=== PATIENT | female | born 1955 | race Caucasian/White ===

== ENCOUNTER 2017-03-16 19:46 | Observation (INO) | payer SELFPAY ==
[~2017-03-16] VITALS: Ht 170.2 cm; Wt 80.5 kg
[2017-03-16] VITALS (10 sets, daily range): BP systolic 125–201; BP diastolic 60–110; PULSE 76–105; RESP 18–20; TEMP 98.3; O2SAT 94–97
[~2017-03-16 19:46] MED LIST: CARD120T4 PO; COUM7.5T PO; FAMO20 PO; FENT50DI T-DERMAL; NAPR220C2 PO; XANA1TAB6 PO
[2017-03-16] MEDS ORDERED: LORazepam 2 MG/ML VIAL IV PUSH ONE (20:00)
[2017-03-16] MEDS ORDERED: NITROGLYCERIN 0.4 MG SL 25 TABS/BTL SL ONE (20:00)
[2017-03-16] MEDS ORDERED: SODIUM CHLORIDE 0.9% FLUSH 10 ML FLUSH IVF PRN ×2 (20:00→21:45)
[2017-03-16] MEDS ORDERED: ASPIRIN 81 MG CHEW TAB CHEW ONE (20:00)
[2017-03-16 20:06] LABS: AUTOMATED NEUTROPHIL # 4.5 TH/MM3 (1.8-7.7); BASOPHIL # 0.1 TH/MM3 (0-0.2); BASOPHIL % 1.1 % (0.0-2.0); EOSINOPHIL % 0.3 % (0.0-4.0); HEMATOCRIT 40.8 % (35.0-46.0); HEMO FLAGS DIFF FINAL; LYMPH % 43.5 % (9.0-44.0); LYMPHOCYTE # 3.9 TH/MM3 (1.0-4.8); MEAN CELL VOLUME 91.9 FL (80.0-100.0); MEAN CORPUSCULAR HEMOGLOBIN 31.1 PG (27.0-34.0); MEAN CORPUSCULAR HGB CONC 33.9 % (32.0-36.0); MONO % 5.2 % (0.0-8.0); NEUT % 49.9 % (16.0-70.0); PLATELET COUNT 371 TH/MM3 (150-450); RED BLOOD COUNT 4.45 MIL/MM3 (4.00-5.30); RED CELL DISTRIBUTION WIDTH 12.5 % (11.6-17.2)
[2017-03-16] MEDS: SODIUM CHLOR 0.9% 1000 ML INJ 1,000 ML IV SCH (20:08)
[2017-03-16] MEDS ORDERED: ONDANSETRON HCL 4 MG/2 ML VIAL IV PUSH ONE (20:15)
--- NOTE | 2017-03-16 20:15 | PD ---
HPI Chief Complaint: Chest Pain Time Seen by Provider: 19:49 Travel History International Travel<30 days: No Contact w/Intl Traveler<30days: No Traveled to known affect area: No History of Present Illness HPI 61-year-old female presents to the emergency department by private transportation in the care of her family for evaluation of retrosternal chest pain with radiation to the neck and the left upper extremity was some numbness sensation to the left upper extremity without weakness. Patient has also experienced shortness of breath and nausea. Patient states that symptoms actually began last evening but have worsened throughout the day. Patient states pain earlier was quite severe and made her feel almost near syncopal but took sublingual nitroglycerin 3 with decrease of discomfort which is a burning sensation to 5/10 in intensity. Patient states she's been out of her medications for approximately one week if she is currently in the process of changing jobs and therefore obtaining new insurance. Patient has history of CAD with previous cardiac catheterization one year ago by Dr. Jackson which showed 50% stenosis of single vessel with mild to moderate disease. Patient also has history of paroxysmal atrial fibrillation and discontinued Coumadin use on her own some time ago. Patient also has history of hypertension dyslipidemia COPD severe anxiety for which she takes Xanax 1 mg twice daily and has been out of this medication as well. Patient's had previous pneumonia. Previous surgery with Joya rods in the back and takes fentanyl patch every 3 days for chronic pain syndrome. Patient denies tobacco use 5 years. 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 Patient denies history of diabetes. Patient does report family history of early onset heart disease. Patient has had one 81 mg low-dose aspirin today but none this evening. Patient does not report any headache visual disturbance change in mentation change in speech facial droop upper or lower extremity weakness and no ataxia of gait. Patient states that numbness that she felt in her affect upper extremity is resolving. PFSH Past Medical History Narrative Medical Anxiety arthritis chronic pain syndrome back surgery/Joya rods CAD hypertension dyslipidemia atrial fibrillation migraines cardiac catheterization ; no tobacco use 5 years; family history CAD; nursing notes reviewed Arthritis: Yes Asthma: No Autoimmune Disease: No Blood Disorders: No Anxiety: Yes Depression: Yes Heart Rhythm Problems: No Cancer: No Cardiac Catheterization: Yes (2002) Cardiovascular Problems: Yes (HTN) High Cholesterol: No Chemotherapy: No Chest Pain: No Congestive Heart Failure: No COPD: No Cerebrovascular Accident: No Coronary Artery Disease: Yes Diabetes: No Diminished Hearing: No Endocrine: No GERD: Yes Glaucoma: No Genitourinary: Yes (HESITANCY) Headaches: Yes Hepatitis: No Hiatal Hernia: Yes Hypertension: Yes Immune Disorder: No Implanted Vascular Access Dvce: Yes Kidney Stones: No Musculoskeletal: Yes Neurologic: Yes (ANXIETY) Psychiatric: Yes Reproductive: Yes (3 MISCARRIAGES) Respiratory: Yes (COPD) Integumentary: No Immunizations Current: No Migraines: Yes Radiation Therapy: No Renal Failure: No Seizures: No Sickle Cell Disease: No Sleep Apnea: No Thyroid Disease: No Ulcer: Yes Menopausal: Yes : 3 Para: 1 Miscarriage: 2 Past Surgical History Abdominal Surgery: No AICD: No Appendectomy: No Arteriovenous Shunt: No Body Medical Devices: JOYA RODS, Cardiac Surgery: Yes (HEART CATH 2002, 2005, 2013) Cholecystectomy: No Ear Surgery: No Endocrine Surgery: No Eye Surgery: No Genitourinary Surgery: No Gynecologic Surgery: No Insulin Pump: No Joint Replacement: No Neurologic Surgery: No Oral Surgery: Yes (TEETH EXTRAXCTIONS) Pacemaker: No Thoracic Surgery: No Other Surgery: Yes (BACK) Social History Alcohol Use: Yes (OCCASIONAL) Tobacco Use: No Substance Use: No Allergies-Medications (Allergen,Severity, Reaction): Coded Allergies: No Known Allergies (Unverified , 03/16/17) Reported Meds & Prescriptions Reported Meds & Active Scripts Active Reported Naproxen Sodium 220 Mg Tab 220 Mg PO DAILY PRN Aspirin 81 Mg Chew 81 Mg CHEW DAILY Narrative Medication Denies Coumadin/warfarin use Review of Systems Except as stated in HPI: all other systems reviewed are Neg General / Constitutional: No: Fever, Chills HENT: Positive: Neck Pain (referred), No: Congestion Cardiovascular: Positive: Chest Pain or Discomfort, Diaphoresis, No: Palpitations, Irregular Rhythm, Tachycardia, Syncope, Dyspnea on exertion, Edema , Claudication Respiratory: Positive: Shortness of Breath, No: Cough, Wheezing Gastrointestinal: Positive: Nausea, No: Vomiting, Diarrhea, Abdominal Pain Genitourinary: No: Dysuria Musculoskeletal: No: Myalgias, Arthralgias, Weakness, Cramping, Edema, Pain Skin: No Rash Neurologic: Positive: Weakness, Paresthesia (brief left upper extremity secondary to chest pain), No: Dizziness, Syncope, Focal Abnormalities, Coordination Problem, Ataxia, Headache, Change in Mentation, Slurred Speech Psychiatric: Positive: Anxiety (daily antianxiety or use out of medication 5 days) Hematologic/Lymphatic: No: Easy Bruising Physical Exam Narrative GENERAL: Well-developed well-nourished female in obvious distress appears very anxious and reports high anxiety and no respiratory distress; GCS 15 SKIN: Warm and dry. HEAD: Atraumatic. Normocephalic. EYES: Pupils equal and round. No scleral icterus. No injection or drainage. ENT: No nasal bleeding or discharge. Mucous membranes pink and moist. NECK: Trachea midline. No JVD. CARDIOVASCULAR: Regular rate and rhythm. RESPIRATORY: No accessory muscle use. Clear to auscultation. Breath sounds equal bilaterally. GASTROINTESTINAL: Abdomen soft, non-tender, nondistended. Hepatic and splenic margins not palpable. MUSCULOSKELETAL: Extremities without clubbing, cyanosis, or edema. No obvious deformities. NEUROLOGICAL: Awake and alert. No obvious cranial nerve deficits. Motor grossly within normal limits. Five out of 5 muscle strength in the arms and legs. Sensation intact bilateral upper extremities and lower extremities. DTRs 2+ and equal bilateral upper extremity's and lower extremities. No pronator drift. No limb ataxia. Normal speech. PSYCHIATRIC: Anxious mood and affect; insight and judgment normal. Data Data Last Documented VS Vital Signs Date Time Temp Pulse Resp B/P Pulse Ox O2 Delivery O2 Flow Rate FiO2 03/16/17 21:30 80 18 138/60 97 Room Air 03/16/17 19:48 98.3 Orders Electrocardiogram (03/16/17 19:50) Basic Metabolic Panel (Bmp) (03/16/17 19:50) Ckmb (Isoenzyme) Profile (03/16/17 19:50) Complete Blood Count With Diff (03/16/17 19:50) Magnesium (Mg) (03/16/17 19:50) Prothrombin Time / Inr (Pt) (03/16/17 19:50) Act Partial Throm Time (Ptt) (03/16/17 19:50) Troponin I (03/16/17 19:50) Chest, Single Ap (03/16/17 19:50) Ecg Monitoring (03/16/17 19:50) Bilateral Bp Monitoring (03/16/17 19:50) Iv Access Insert/Monitor (03/16/17 19:50) Oximetry (03/16/17 19:50) Oxygen Administration (03/16/17 19:50) Sodium Chloride 0.9% Flush (Ns Flush) (03/16/17 20:00) Aspirin Chew (Aspirin Chew) (03/16/17 20:00) Nitroglycerin Sl (Nitrostat Sl) (03/16/17 20:00) Lorazepam Inj (Ativan Inj) (03/16/17 20:00) Sodium Chlor 0.9% 1000 Ml Inj (Ns 1000 M (03/16/17 20:00) Ondansetron Inj (Zofran Inj) (03/16/17 20:15) Pantoprazole Inj (Protonix Inj) (03/16/17 20:30) Ceftriaxone Inj (Rocephin Inj) (03/16/17 21:15) Azithromycin Inj (Zithromax Inj) (03/16/17 21:15) Blood Culture (03/16/17 21:09) Lactic Acid (03/16/17 21:09) Nitroglycerin 2% Oint (Nitroglycerin 2% (03/16/17 21:15) Sodium Chlorid 0.9% 500 Ml Inj (Ns 500 M (03/16/17 21:15) Place In Observation (03/16/17 ) Vital Signs (Adult) Q4H (03/16/17 21:35) Activity Oob With Assistance (03/16/17 21:35) Pan Devulcanizer Helper / Telemetry .CONTINUOUS (03/16/17 21:35) Diet Heart Healthy (03/17/17 Breakfast) Sodium Chloride 0.9% Flush (Ns Flush) (03/16/17 21:45) Basic Metabolic Panel (Bmp) (03/17/17 06:00) Complete Blood Count With Diff (03/17/17 06:00) Creatine Kinase (Cpk) (03/17/17 02:00) Creatine Kinase (Cpk) (03/17/17 08:00) Troponin I (03/17/17 02:00) Troponin I (03/17/17 08:00) Electrocardiogram (03/17/17 02:00) Electrocardiogram (03/17/17 08:00) Naloxone Inj (Narcan Inj) (03/16/17 21:45) Ceftriaxone Inj (Rocephin Inj) (03/17/17 09:00) Azithromycin Inj (Zithromax Inj) (03/17/17 09:00) Admit Order (Ed Use Only) (03/16/17 ) ^ Saline Lock (03/16/17 21:38) Resp Oxygen Harish C Titrat 1-4 L (03/16/17 ) Notify Dr: Other (03/16/17 21:38) Sodium Chloride 0.9% Flush (Ns Flush) (03/16/17 21:45) Consult Cardiology (03/16/17 21:38) Labs Laboratory Tests Test 03/16/17 03/16/17 19:55 21:30 White Blood Count 9.0 TH/MM3 Red Blood Count 4.45 MIL/MM3 Hemoglobin 13.8 GM/DL Hematocrit 40.8 % Mean Corpuscular Volume 91.9 FL Mean Corpuscular Hemoglobin 31.1 PG Mean Corpuscular Hemoglobin 33.9 % Concent Red Cell Distribution Width 12.5 % Platelet Count 371 TH/MM3 Mean Platelet Volume 6.9 FL Neutrophils (%) (Auto) 49.9 % Lymphocytes (%) (Auto) 43.5 % Monocytes (%) (Auto) 5.2 % Eosinophils (%) (Auto) 0.3 % Basophils (%) (Auto) 1.1 % Neutrophils # (Auto) 4.5 TH/MM3 Lymphocytes # (Auto) 3.9 TH/MM3 Monocytes # (Auto) 0.5 TH/MM3 Eosinophils # (Auto) 0.0 TH/MM3 Basophils # (Auto) 0.1 TH/MM3 CBC Comment DIFF FINAL Differential Comment Prothrombin Time 10.8 SEC Prothromb Time International 1.0 RATIO Ratio Activated Partial 27.4 SEC Thromboplast Time Sodium Level 138 MEQ/L Potassium Level 3.5 MEQ/L Chloride Level 105 MEQ/L Carbon Dioxide Level 24.7 MEQ/L Anion Gap 8 MEQ/L Blood Urea Nitrogen 7 MG/DL Creatinine 0.60 MG/DL Estimat Glomerular Filtration 102 ML/MIN Rate Random Glucose 96 MG/DL Calcium Level 9.1 MG/DL Magnesium Level 1.8 MG/DL Total Creatine Kinase 94 U/L Troponin I LESS THAN 0.02 NG/ML Lactic Acid Level 1.5 mmol/L MDM Medical Decision Making Medical Screen Exam Complete: Yes Emergency Medical Condition: Yes Medical Record Reviewed: Yes Interpretation(s) EKG: Normal sinus rhythm no acute ST elevation or injury pattern change nonspecific minor T wave inversions septally V1 V2 Differential Diagnosis Chest pain, ACS, myocardial infarction, aortic dissection, PE, COPD, esophageal spasm, TIA Narrative Course Patient placed on housing assistant EKG performed IV access obtained; bilateral blood pressures obtained. Patient with marked anxiety with tremulousness states that she has not had her Xanax and feels extremely anxious patient ordered aspirin 162 mg times one dose, patient has artery taken 3 sublingual nitroglycerin at home noted to be hypertensive with chest pain 5/10 in intensity administered one sublingual nitroglycerin. Patient also administered Ativan 0.5 mg for complaint of anxiety for benzodiazepine management which she typically takes on a daily basis. Patient also given Zofran 4 mg IV for complaint of nausea. Patient administered normal saline 100 cc per hour as maintenance fluids. Specimens collected and sent for resulting. Medical record reviewed identifies patient did undergo a cardiac catheterization 02/2016 with multiple moderate disease with 50% single vessel disease. @ 8:18 after x 1 sl ntg 0.4mg cp decreased to 3/10 burning @ 9:13 pain free; cbc wnl; bmp: wnl; coags: wnl ---ekg no acute injury pattern and cxr er reading radiologist concerning for lingular infiltrate--case discussed with patients tobacco drier operator -- card cath from 02/2016 single vessel moderate disease with patient report of d/c coumadin on her own. Patient resting comfortably and aware of plan for observation admission to [facility] to [facility] and recommendation of her tobacco drier operator Dr. Jackson with coverage by his colleague Dr. Ocampo admit to medicine service Dr. Vitale; in view of lingular infiltrate but cultures times to obtain lactic acid level obtained patient given normal saline bolus and presumptive community-acquired antibiotic coverage with Rocephin 1 g IV piggyback and azithromycin 500 mg IV piggyback. Physician Communication Physician Communication discussed with Dr Jackson --rec [facility] admit to medicine --serial enzymes , if unstable overnight --corporate receptionist for Dr Jackson is Dr Wiggins; will manage for lingular infiltrate as well; discussed with Dr Vitale --- OBS to [facility] Diagnosis Primary Impression: Chest pain Qualified Code: R07.2 - Precordial pain Additional Impression: Pulmonary infiltrate in left lung on chest x-ray Admitting Information Admitting Physician Requests: Observation Scripts Levofloxacin 750 Mg [id number] Mg PO DAILY #6 TAB Ref 0 Prov:Te Royal 03/17/17 Guaifenesin-Codeine Liq (Guaifenesin AC Liq)100-10 Mg/5 Ml Syrp10 Ml PO Q6H PRN (COUGH) 10 Days Ref 0 Prov:Te Royal 03/17/17 Diltiazem CD 24 HR (Cardizem CD 24 HR)180 Mg [id number] Mg PO DAILY #30 CAP Prov:Te Royal 03/17/17 Atorvastatin (Lipitor)10 Mg Tab10 Mg PO HS #30 TAB Prov:eT Royal 03/17/17 Omeprazole 40 Mg Cap40 Mg PO DAILY #30 CAP Ref 0 Prov:Te Royal 03/17/17 Alprazolam (Xanax)1 Mg Tab1 Mg PO BID PRN (ANXIETY) #20 TAB Ref 0 Prov:Te Royal 03/17/17 Nena Ron MD Mar 16, 2017 20:15
[2017-03-16 20:16] LABS: CHLORIDE 105 MEQ/L (98-107); POTASSIUM 3.5 MEQ/L (3.5-5.1); SODIUM (NA) 138 MEQ/L (136-145)
[2017-03-16 20:19] LABS: ANION GAP 8 MEQ/L (5-15); BICARBONATE 24.7 MEQ/L (21.0-32.0); MAGNESIUM 1.8 MG/DL (1.5-2.5)
[2017-03-16 20:20] LABS: BLOOD UREA NITROGEN 7 MG/DL (7-18)
[2017-03-16 20:22] LABS: APTT (PATIENT) 27.4 SEC (24.3-30.1); PROTHROMBIN TIME - PATIENT 10.8 SEC (9.8-11.6)
[2017-03-16 20:23] LABS: GLOMERULAR FILTRATION RATE 102 ML/MIN (>89)
[2017-03-16 20:30] LABS: CREATINE KINASE 94 U/L (26-192)
[2017-03-16] MEDS ORDERED: PANTOPRAZOLE SODIUM 40 MG VIAL IV PUSH ONE (20:30)
--- NOTE | 2017-03-16 20:59 | RADRPT ---
EXAM DATE/TIME: 03/16/2017 20:08 [place] COMPARISON: CHEST SINGLE AP, November 18, 2015, 3:34. INDICATIONS : Chest pain. MEDICAL HISTORY : Chronic obstructive pulmonary disease. SURGICAL HISTORY : Devine rods. ENCOUNTER: Initial ACUITY: 1 day PAIN SCORE: 7/10 LOCATION: Bilateral chest FINDINGS: Elongated area of consolidation tracks along the left lower heart border characteristic of a lingular infiltrate. The right lung is clear. The heart is normal in size. Both hemidiaphragms well deline ated. CONCLUSION: Probable elongated consolidative infiltrate in the lingula. Lobito Kim MD on March 16, 2017 at 20:57 Board Certified Radiologist. This report was verified electronically.
[2017-03-16] MEDS ORDERED: SODIUM CHLORID 0.9% 500 ML INJ 500 ML IV ONE (21:15)
[2017-03-16] MEDS ORDERED: NITROGLYCERIN 2% OINT 1 GM PACKET TOPICAL ONE (21:15)
[2017-03-16] MEDS ORDERED: AZITHROMYCIN INJ 500 MG in SODIUM CHLOR 0.9% 250 ML INJ 250 ML IV ONE (21:15)
[2017-03-16] MEDS ORDERED: cefTRIAXone INJ 1,000 MG in SODIUM CHLORIDE 0.9% INJ 100 ML IV ONE (21:15)
[2017-03-16] MEDS ORDERED: SODIUM CHLORIDE 0.9% FLUSH 10 ML FLUSH IV FLUSH PRN (21:45)
[2017-03-16] MEDS ORDERED: NALOXONE HCL 0.4 MG/ML AMP IV PRN (21:45)
[2017-03-16] MEDS ORDERED: CARD120T4 PO (21:49)
[2017-03-16] MEDS ORDERED: DILT120T PO (21:49)
[2017-03-16] MEDS ORDERED: OMEP40CA2 PO (21:50)
[2017-03-16] MEDS ORDERED: XANA1TAB2 PO (21:50)
[2017-03-16] MEDS ORDERED: FENT25DI T-DERMAL (21:51)
[2017-03-16] MEDS ORDERED: ASPI81CH CHEW (21:51)
[2017-03-16] MEDS ORDERED: MEDI220T PO (21:52)
[2017-03-17] VITALS (7 sets, daily range): BP systolic 105–133; BP diastolic 52–84; PULSE 65–81; RESP 16–18; TEMP 97.8–98.7; O2SAT 92–96
[2017-03-17 02:57] LABS: CREATINE KINASE 70 U/L (26-192)
[2017-03-17] MEDS: SODIUM CHLOR 0.9% 1000 ML INJ 1,000 ML IV SCH ×2 (06:00→11:38)
[2017-03-17] MEDS ORDERED: ONDANSETRON HCL 4 MG/2 ML VIAL IV PUSH PRN (06:45)
[2017-03-17] MEDS ORDERED: ACETAMINOPHEN 325 MG TAB PO PRN (06:45)
[2017-03-17] MEDS ORDERED: cefTRIAXone INJ 1,000 MG in SODIUM CHLORIDE 0.9% INJ 100 ML IV SCH (09:00)
[2017-03-17] MEDS ORDERED: AZITHROMYCIN INJ 500 MG in SODIUM CHLOR 0.9% 250 ML INJ 250 ML IV SCH (09:00)
[2017-03-17] MEDS ORDERED: SODIUM CHLORIDE 0.9% FLUSH 10 ML FLUSH IV FLUSH SCH ×2 (09:00)
[2017-03-17] MEDS ORDERED: ATORVASTATIN 10 MG TAB PO ONE (11:00)
[2017-03-17] MEDS ORDERED: ALPRAZolam 1 MG TAB PO PRN (11:00)
[2017-03-17] MEDS ORDERED: DILTIAZEM-CD 180 MG CAP ER PO ONE (11:00)
[2017-03-17] MEDS ORDERED: ASPIRIN EC 81 MG TABEC PO ONE (11:00)
[2017-03-17 11:21] LABS: AUTOMATED NEUTROPHIL # 2.5 TH/MM3 (1.8-7.7); BASOPHIL % 0.4 % (0.0-2.0); EOSINOPHIL % 0.6 % (0.0-4.0); HEMO FLAGS DIFF FINAL; LYMPH % 52.5 % (9.0-44.0); LYMPHOCYTE # 3.2 TH/MM3 (1.0-4.8); MEAN CELL VOLUME 92.3 FL (80.0-100.0); MEAN CORPUSCULAR HEMOGLOBIN 32.1 PG (27.0-34.0); MEAN CORPUSCULAR HGB CONC 34.8 % (32.0-36.0); MONO % 6.1 % (0.0-8.0); NEUT % 40.4 % (16.0-70.0); PLATELET COUNT 310 TH/MM3 (150-450); RED BLOOD COUNT 4.11 MIL/MM3 (4.00-5.30); RED CELL DISTRIBUTION WIDTH 13.2 % (11.6-17.2); WHITE BLOOD COUNT 6.2 TH/MM3 (4.0-11.0)
--- NOTE | 2017-03-17 11:24 | MB ---
cc: JUAN JOSE WYLIE M.D. DATE OF CONSULTATION 03/17/2017 HISTORY OF PRESENT ILLNESS Paola is a very pleasant 61-year-old lady with a history of mild to moderate coronary disease by cath on February 20, 2016, also history of paroxysmal atrial fibrillation previously on Coumadin. The patient, however, refuses Coumadin. She developed severe band-like, sharp chest pain, worse with a deep breath system associated with numbness down the left upper extremity, also malaise and fatigue, found to have a left lingular infiltrate on chest x-ray. She feels better this morning, otherwise denies any GI or bleeding, PND, orthopnea, syncope or dizziness. PAST MEDICAL HISTORY Per History of Present Illness. 1. She has a history of chronic back pain syndrome status post Devine rods. 2. Coronary artery disease as detailed above. 3. Hypertension. 4. Dyslipidemia. 5. A-fib. 6. Migraine headaches. 7. Arthritis. 8. COPD. SOCIAL HISTORY Denies tobacco use. Drinks alcohol. ONSET Denies diabetes. Drinks alcohol occasionally. ALLERGIES None. MEDICATIONS PRIOR TO ADMISSION 1. Xanax. 2. Coumadin 7.5 daiyl. 3. Pepcid. 4. Cardizem 120 b.i.d. 5. Naprosyn. 6. Fentanyl patch. MEDICATIONS IN THE HOSPITAL 1. Ceftriaxone. 2. Azithromycin IV. 3. Aspirin 162 x 1. PHYSICAL EXAMINATION VITAL SIGNS: Blood pressure 119/52, pulse 67, respiratory rate 18, temperature 97.8, sats 95% on room air. GENERAL: She is alert and oriented x 3, in no acute distress. NECK: Supple. No JVD, no bruit. CARDIOVASCULAR: S1, S2. No murmurs, rubs, or gallops. LUNGS: Clear to auscultation bilaterally. ABDOMEN: Soft, nontender, nondistended with positive bowel sounds. EXTREMITIES: No extremity edema. LABORATORY DATA INR is 1.0. White count 9.0, hemoglobin 13.8, hematocrit 40.8, platelet count is 371. Sodium 138, potassium 3.5, chloride 105, bicarb 24.7, BUN 7, c438 0.60. Troponin I less than 0.02 x 2. CHEST X-RAY Probable elongated consolidative infiltrate in the lingula and EKG shows normal sinus rhythm with nonspecific ST-T wave changes. DIAGNOSES 1. Pneumonia. 2. Atypical chest pain. 3. Coronary artery disease. 4. Paroxysmal atrial fibrillation. 5. Noncompliance. 6. Hypertension. 7. Chronic back pain. DISCUSSION At this point in time she has no objective evidence of ischemic etiology to her symptoms. Her chest pain is consistent with pleuritic chest pain and she has a pneumonia. I doubt this is ischemic in etiology. Nevertheless, she does have risk factors for ischemic events. Recommend aspirin 81 mg a day as the patient refuses Coumadin. Optimally she should be on statin as I recall. We will start a low-dose statin. I think she may have a statin intolerance. I will be out of town until [address] Juan Pablo will be covering me in my absence. ADDENDUM Also note, the patient has a history of paroxysmal A. Fib and her CHADS sore is one. She is noncompliant with Coumadin and refuses to take Coumadin, therefore, we will place her aspirin 81 mg daily, enteric-coated. She is currently in sinus rhythm and also recommend continuing her Cardizem at her home dose. MD BROCK Guillen/[place] /10:44 AM /11:55 AM
[2017-03-17 11:49] LABS: BICARBONATE 27.3 MEQ/L (21.0-32.0); POTASSIUM 3.4 MEQ/L (3.5-5.1)
[2017-03-17 11:56] LABS: CREATINE KINASE 80 U/L (26-192)
[2017-03-17] MEDS ORDERED: OMEP40CA2 PO (13:44)
[2017-03-17] MEDS ORDERED: LIPI10TA PO (13:44)
[2017-03-17] MEDS ORDERED: CARD180C5 PO (13:44)
[2017-03-17] MEDS ORDERED: XANA1TAB2 PO (13:44)
[2017-03-17] MEDS ORDERED: GUAISYP4 PO (13:46)
--- NOTE | 2017-03-17 13:46 | HHI.HP ---
[facility] Primary [facility] Physician No Primary Care Physician Admission Diagnosis chest pain; lingular infiltrate Diagnoses: Chief Complaint: Chest pain Travel History International Travel<30 Days: No Contact w/Intl Traveler <30 Da: No Traveled to Known Affected Are: No History of Present Illness Written by Martin Sarmiento, acting as scribe for Dr. Royal on 03/17/17 at 13:32. This note was transcribed by ANNETTA Lott. I, Dr. Rodolfo Royal personally performed the history, physical exam, and medical decision making; and confirmed the accuracy of the information in the transcribed note. Authenticated by Dr. Rodolfo Royal on 03/17/17 at 23:29. 61-year-old female with a past medical history of CAD, COPD, HTN, GERD, anxiety , chronic back pain, A. fib who presented for chest pain. 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 She's also been out of some of her home meds recently while she's been trying to follow up with her PCP. She has noticed that she's had a cough that is productive with green sputum. She states that yesterday prior to admission she began having burning "pleuritic" chest pain with associated left arm numbness and elevated blood pressure. She was seen by her professor of public administration Dr. Jackson here earlier today who has cleared her for outpatient follow-up. She is currently having no shortness of breath on room air. She says she has a history of getting pneumonia couple times a year and her symptoms feel similar to previous episodes. Review of Systems Except as stated in HPI: all other systems reviewed are Neg Past Family Social History Past Medical History Hypertension Coronary artery disease COPD GERD Anxiety Chronic back pain Atrial fibrillation Past Surgical History Back surgery with hardware placement Reported Medications Naproxen Sodium 220 Mg Tab 220 Mg PO DAILY PRN Aspirin 81 Mg Chew 81 Mg CHEW DAILY Fentanyl Patch 72 HR (Fentanyl) 25 Mcg/Hr Patch 25 Mcg T-DERMAL Q72H Omeprazole 40 Mg Cap 40 Mg PO DAILY Xanax (Alprazolam) 1 Mg Tab 1 Mg PO BID PRN Cardizem (Diltiazem HCl) 120 Mg Tab 180 Mg PO BID Allergies: Coded Allergies: No Known Allergies (Unverified , 03/16/17) Active Ordered Medications Current Medications Medications (Trade) Dose Ordered Sig/Stella Route Start Time Stop Time Status Last Admin (NS 1000 ml Inj) 1,000 ml @ 100 mls/hr Q10H IV 03/16/17 20:00 03/17/17 11:38 (NS Flush) 2 ml UNSCH PRN IV FLUSH 03/16/17 21:45 Naloxone HCl 0.4 mg 0.4 mg UNSCH PRN IV 03/16/17 21:45 Ceftriaxone Sodium 1000 mg/ Sodium Chloride 100 ml @ 200 mls/hr Q24H IV 03/17/17 09:00 03/17/17 08:46 (Zithromax Inj/ NS 250 ml Inj) 250 ml @ 250 mls/hr Q24H IV 03/17/17 09:00 03/17/17 10:17 (NS Flush) 2 ml UNSCH PRN IVF 03/16/17 21:45 (Zofran Inj) 4 mg Q6HR PRN IV PUSH 03/17/17 06:45 03/17/17 06:38 (Tylenol) 650 mg Q4H PRN PO 03/17/17 06:45 03/17/17 06:39 (Xanax) 1 mg BID PRN PO 03/17/17 11:00 03/17/17 11:05 (Protonix) 40 mg DAILY PO 03/18/17 09:00 (Ecotrin Ec) 81 mg DAILY PO 03/18/17 09:00 (Lipitor) 10 mg HS PO 03/18/17 21:00 (Cardizem Cd) 180 mg DAILY PO 03/18/17 09:00 (KCl) 20 meq ONCE ONCE PO 03/17/17 14:00 03/17/17 14:01 Family History Mother had diabetes and heart disease Father of colon cancer with lung metastases Social History Quit smoking 5 years ago occasional alcohol use Works as a nurse Physical Exam Vital Signs Vital Signs Date Time Temp Pulse Resp B/P Pulse Ox O2 Delivery O2 Flow Rate FiO2 03/17/17 11:30 98.0 76 16 130/84 94 03/17/17 08:45 68 03/17/17 07:46 97.8 67 18 119/52 95 03/17/17 03:31 98.1 68 16 105/58 96 03/17/17 01:53 65 03/17/17 01:27 98.7 81 18 133/68 92 03/17/17 00:00 68 18 120/79 94 Room Air 03/16/17 23:00 76 18 125/70 94 Room Air 03/16/17 22:05 95 21 03/16/17 22:00 98.3 80 18 133/64 96 Room Air 03/16/17 21:30 80 18 138/60 97 Room Air 03/16/17 20:50 78 18 127/70 95 Room Air 03/16/17 20:20 90 18 150/77 95 Room Air 03/16/17 20:14 95 18 138/83 95 Room Air 03/16/17 20:08 86 18 161/93 96 Room Air 03/16/17 20:05 20 Room Air 03/16/17 20:00 97 Room Air 03/16/17 20:00 88 20 158/86 97 Room Air 167/91 03/16/17 20:00 97 Room Air 03/16/17 19:48 98.3 105 20 201/110 95 Physical Exam GENERAL: Well-developed well-nourished. In no acute distress. SKIN: Warm and dry. No lesions noted. HEENT: Normocephalic. Pupils equal and round. Mucous membranes pink and moist. CARDIOVASCULAR: Regular rate and rhythm. No murmur appreciated. RESPIRATORY: No accessory muscle use. Clear to auscultation. Moderate air entry. No wheezing. GASTROINTESTINAL: Abdomen soft, non-tender, nondistended. Bowel sounds x4. MUSCULOSKELETAL: No obvious deformities. No clubbing or cyanosis. No edema. NEUROLOGICAL: Awake and alert. No focal neurological deficits. Moves upper and lower extremities spontaneously. Normal speech. PSYCHIATRIC: Appropriate mood and affect; insight and judgment normal. Laboratory Laboratory Tests Test 03/16/17 03/16/17 03/17/17 03/17/17 19:55 21:30 02:15 10:52 White Blood Count 9.0 6.2 Red Blood Count 4.45 4.11 Hemoglobin 13.8 13.2 Hematocrit 40.8 38.0 Mean Corpuscular Volume 91.9 92.3 Mean Corpuscular Hemoglobin 31.1 32.1 Mean Corpuscular Hemoglobin 33.9 34.8 Concent Red Cell Distribution Width 12.5 13.2 Platelet Count 371 310 Mean Platelet Volume 6.9 6.8 Neutrophils (%) (Auto) 49.9 40.4 Lymphocytes (%) (Auto) 43.5 52.5 Monocytes (%) (Auto) 5.2 6.1 Eosinophils (%) (Auto) 0.3 0.6 Basophils (%) (Auto) 1.1 0.4 Neutrophils # (Auto) 4.5 2.5 Lymphocytes # (Auto) 3.9 3.2 Monocytes # (Auto) 0.5 0.4 Eosinophils # (Auto) 0.0 0.0 Basophils # (Auto) 0.1 0.0 CBC Comment DIFF FINAL DIFF FINAL Differential Comment Prothrombin Time 10.8 Prothromb Time International 1.0 Ratio Activated Partial 27.4 Thromboplast Time Sodium Level 138 142 Potassium Level 3.5 3.4 Chloride Level 105 109 Carbon Dioxide Level 24.7 27.3 Anion Gap 8 6 Blood Urea Nitrogen 7 6 Creatinine 0.60 0.65 Estimat Glomerular Filtration 102 93 Rate Random Glucose 96 112 Calcium Level 9.1 8.6 Magnesium Level 1.8 Total Creatine Kinase 94 70 80 Troponin I LESS THAN 0.02 LESS THAN 0.02 LESS THAN 0.02 Lactic Acid Level 1.5 Date/Time Procedure Status Source Growth 03/16/17 21:34 Aerobic Blood Culture - Preliminary Resulted Blood Peripheral NO GROWTH IN 1 DAY 03/16/17 21:34 Anaerobic Blood Culture - Preliminary Resulted Blood Peripheral NO GROWTH IN 1 DAY Result Diagram: 03/17/17 1052 03/17/17 1052 Imaging Last Impressions Chest X-Ray 03/16/17 1950 Signed Impressions: Service Date/Time: Thursday, March 16, 2017 20:08 - CONCLUSION: Probable elongated consolidative infiltrate in the lingula. Lobito Kim MD Assessment and Plan Assessment and Plan 61-year-old female with a past medical history of CAD, COPD, HTN, GERD, anxiety , chronic back pain, A. fib who presented for chest pain Atypical chest pain: Sounds more pleuritic. ACS ruled out per protocol with unremarkable serial cardiac enzymes and EKGs. Chest x-ray shows probable elongated consolidative infiltrate in the lingula. Cardiology consulted, DOS ischemia. Continue aspirin, statin. Pneumonia: Chest x-ray as above. Afebrile with no leukocytosis. Satting well on room air. Received IV azithromycin and ceftriaxone in the ED. Continue course of oral Levaquin. Guaifenesin before meals as needed for cough. Continue home nebs as needed. Other chronic medical conditions include HTN, anxiety, chronic pain, GERD: Stable at this time and will continue home medications as indicated. Disposition: Clear from cardiology perspective with nonischemic chest pain. We' ll continue to treat for pneumonia as outpatient. Discharge home today. Discharge patient to home Condition on discharge: Improved Heart Diet as tolerated Ad Megan activity Rx written: New Medications: Guaifenesin-Codeine Liq (Guaifenesin AC Liq) 100-10 Mg/5 Ml Syrp 10 ML PO Q6H PRN COUGH Days 10 Ref 0 BOTTLE Levofloxacin 750 Mg Tablet 750 MG PO DAILY Infection #6 Ref 0 TAB Atorvastatin (Lipitor) 10 Mg Tab 10 MG PO HS Cholesterol Management #30 TAB Diltiazem CD 24 HR (Cardizem CD 24 HR) 180 Mg Caper 180 MG PO DAILY Heart #30 CAP Continued Medications: Alprazolam (Xanax) 1 Mg Tab 1 MG PO BID PRN ANXIETY #20 Ref 0 TAB (This prescription has been renewed) Aspirin 81 Mg Chew 81 MG CHEW DAILY Ref 0 TAB Naproxen Sodium 220 Mg Tab 220 MG PO DAILY PRN Pain Management Ref 0 TAB Omeprazole 40 Mg Cap 40 MG PO DAILY Reflux #30 Ref 0 CAP (This prescription has been renewed) Follow-up with primary care physician within one week. Cardiology PRN Discussed Condition With Patient, Martin Clemente Mar 17, 2017 13:46 Te Royal DO Mar 17, 2017 23:30
[2017-03-17] MEDS ORDERED: LEVO750T3 PO (13:47)
[2017-03-17] MEDS ORDERED: POTASSIUM CHLORIDE 20 MEQ CONTROLLED RELEASE TAB PO ONE (14:00)
--- NOTE | 2017-03-17 14:53 | EKG ---
Date Performed: 03/17/2017 Time Performed: 02:28:28 PTAGE: 61 years EKG: Sinus rhythm NORMAL ECG PREVIOUS TRACING : 03/16/2017 19.53 Since previous tracing, no significant change noted DOCTOR: Josefa Painting Interpretating Date/Time 03/17/2017 14:52:33
--- NOTE | 2017-03-17 14:53 | EKG ---
Date Performed: 03/16/2017 Time Performed: 19:53:55 PTAGE: 61 years EKG: Sinus rhythm NORMAL ECG PREVIOUS TRACING : 02/20/2016 08.48 Since previous tracing, no significant change noted DOCTOR: Josefa Painting Interpretating Date/Time 03/17/2017 14:52:14
[2017-03-17] MEDS ORDERED: DILTIAZEM-CD 180 MG CAP ER PO SCH (21:00)
[2017-03-18] MEDS ORDERED: ASPIRIN 81 MG CHEW TAB CHEW SCH (09:00)
[2017-03-18] MEDS ORDERED: ASPIRIN EC 81 MG TABEC PO SCH (09:00)
[2017-03-18] MEDS ORDERED: DILTIAZEM-CD 180 MG CAP ER PO SCH (09:00)
[2017-03-18] MEDS ORDERED: PANTOPRAZOLE SOD 40 MG DELAYED RELEASE TAB PO SCH (09:00)
[2017-03-18] MEDS ORDERED: ATORVASTATIN 10 MG TAB PO SCH (21:00)
== END 2017-03-17 14:20 | disposition home or self-care (01) ==
LOC: PHED 19:46 → PHEDA 21:41 → NEPGCP 03-17 01:10
PROVIDERS: ADMIT Hospitalist; ATTEND Hospitalist
DX: R07.89 Other chest pain (principal); J44.0 Chronic obstructive pulmonary disease with (acute) lower respiratory infection; J18.9 Pneumonia, unspecified organism; R11.0 Nausea; R20.0 Anesthesia of skin; I25.10 Atherosclerotic heart disease of native coronary artery without angina pectoris; I10 Essential (primary) hypertension; I48.0 Paroxysmal atrial fibrillation; E78.5 Hyperlipidemia, unspecified; K21.9 Gastro-esophageal reflux disease without esophagitis; F41.9 Anxiety disorder, unspecified; M54.9 Dorsalgia, unspecified; G89.4 Chronic pain syndrome; G43.909 Migraine, unspecified, not intractable, without status migrainosus; F32.9 Major depressive disorder, single episode, unspecified; M19.90 Unspecified osteoarthritis, unspecified site; Z79.82 Long term (current) use of aspirin; Z79.01 Long term (current) use of anticoagulants; Z79.899 Other long term (current) drug therapy; Z87.891 Personal history of nicotine dependence; Z91.19 Patient's noncompliance with other medical treatment and regimen
CPT/HCPCS: 71010; 80048; 82550; 83605; 83735; 84484; 85025; 85610; 85730; 87040; 93005; 96361; 96365; 96366; 96374; 96375; 99285; C9113; G0378; J0456; J0696; J2060; J2405; J7030; J7040; J7050

== ENCOUNTER 2017-04-27 11:12 | Inpatient (IN) | payer OTHER ==
[2017-04-27] VITALS (8 sets, daily range): BP systolic 101–167; BP diastolic 52–74; PULSE 75–100; RESP 16–24; TEMP 97.7–98.7; O2SAT 92–96
[~2017-04-27] VITALS: Ht 168.9 cm; Wt 86.0 kg
[~2017-04-27 11:12] MED LIST changes: +ASPI81CH CHEW; -CARD120T4 PO; +CARD180C5 PO; -COUM7.5T PO; -FAMO20 PO; -FENT50DI T-DERMAL; +GUAISYP4 PO; +LEVO750T3 PO; +LIPI10TA PO; +MEDI220T PO; -NAPR220C2 PO; +OMEP40CA2 PO; +XANA1TAB2 PO; -XANA1TAB6 PO
[2017-04-27] MEDS ORDERED: HYDROmorphone HCL PF 1 MG/ML VIAL IV PUSH ONE ×2 (12:00→13:15)
--- NOTE | 2017-04-27 13:00 | RADRPT ---
EXAM DATE/TIME: 04/27/2017 12:36 [facility] COMPARISON: No previous studies available for comparison. INDICATIONS : Fell in parking lot, twisted ankle pain and bruising lateral malleous. MEDICAL HISTORY : None. SURGICAL HISTORY : None. ENCOUNTER: Initial ACUITY: 1 day PAIN SCORE: 9/10 LOCATION: Left ankle FINDINGS: Three view exam was performed of the left ankle. The bony structures are in normal alignment. Small bone fragment dorsal to the distal talus, could be capsular avulsion. Faint fracture fragment medial to the navicular bone also possible capsular avulsion. No evidence of dislocation, or soft tissue swelling. The ankle mortise is intact. No radiopaque foreign bodies are seen. Bony mineralization is normal. Ossification of the Achilles insertion posteriorly likely calcific tendinopathy. CONCLUSION: 2 questionable bone fragments adjacent to the talus and navicular bones could be tiny avulsion fractu res. Philipp Fagan MD on April 27, 2017 at 12:57 Board Certified Radiologist. This report was verified electronically.
--- NOTE | 2017-04-27 13:01 | RADRPT ---
EXAM DATE/TIME: 04/27/2017 12:35 [facility] COMPARISON: No previous studies available for comparison. INDICATIONS : Fall pain with deformity right elbow. MEDICAL HISTORY : None. SURGICAL HISTORY : None. ENCOUNTER: Initial ACUITY: 1 day PAIN SCORE: 10/10 LOCATION: Right humerus FINDINGS: Single view of the right humerus demonstrates 2 fracture involving the distal humerus including possi neftaly the capitellum. Bony mineralization is normal. CONCLUSION: Distal humeral fractures. The humeral shaft is intact Philipp Fagan MD on April 27, 2017 at 12:59 Board Certified Radiologist. This report was verified electronically.
--- NOTE | 2017-04-27 13:01 | PD ---
HPI Chief Complaint: Fall Time Seen by Provider: 11:40 Travel History International Travel<30 days: No Contact w/Intl Traveler<30days: No Traveled to known affect area: No History of Present Illness HPI This is a 62-year-old female who presents to the emergency department having had a mechanical fall when she was at [employer] with her kids landing on her right elbow and twisting her left ankle. She reports severe pain in her right elbow, constant, with no associated numbness or weakness. She also has pain in her left ankle. The patient denies hitting her head. She does have a history of chronic back pain and is opiate dependent and uses fentanyl patches at home. PFSH Past Medical History Arthritis: Yes Asthma: No Autoimmune Disease: No Blood Disorders: No Anxiety: Yes Depression: Yes Heart Rhythm Problems: No Cancer: No Cardiac Catheterization: Yes (2002) Cardiovascular Problems: Yes High Cholesterol: No Chemotherapy: No Chest Pain: No Congestive Heart Failure: No COPD: Yes Cerebrovascular Accident: No Coronary Artery Disease: Yes Diabetes: No Diminished Hearing: No Endocrine: No Gastrointestinal Disorders: Yes (ESOPHAGEAL REFLUX AND SPASMS) GERD: Yes Glaucoma: No Genitourinary: Yes (URGENCY) Headaches: Yes Hepatitis: No Hiatal Hernia: Yes Hypertension: Yes Immune Disorder: No Implanted Vascular Access Dvce: Yes Kidney Stones: No Musculoskeletal: Yes Neurologic: No Psychiatric: Yes Reproductive: Yes (3 MISCARRIAGES) Respiratory: Yes Integumentary: No Immunizations Current: No Migraines: Yes Radiation Therapy: No Renal Failure: No Seizures: No Sickle Cell Disease: No Sleep Apnea: No Thyroid Disease: No Ulcer: Yes Influenza Vaccination: Yes ?: Not Menopausal: Yes : 3 Para: 1 Miscarriage: 2 Dilation and Curettage (D&C): Yes (X4) Past Surgical History Abdominal Surgery: No AICD: No Appendectomy: No Arteriovenous Shunt: No Body Medical Devices: JOYA RODS Cardiac Surgery: Yes (HEART CATH 2002, 2005, 2013) Cholecystectomy: No Ear Surgery: No Endocrine Surgery: No Eye Surgery: No Genitourinary Surgery: No Gynecologic Surgery: No Insulin Pump: No Joint Replacement: No Neurologic Surgery: No Oral Surgery: Yes (TEETH EXTRAXCTIONS) Pacemaker: No Thoracic Surgery: No Other Surgery: Yes (NUMEROUS BACK SURGIES) Social History Alcohol Use: Yes ( Occasional wine) Tobacco Use: No (Quit 5 years ago ) Substance Use: No Allergies-Medications (Allergen,Severity, Reaction): Coded Allergies: No Known Allergies (Unverified , 04/27/17) Reported Meds & Prescriptions Reported Meds & Active Scripts Active Cardizem CD 24 HR (Diltiazem CD 24 HR) 180 Mg Caper 180 Mg PO DAILY Lipitor (Atorvastatin Calcium) 10 Mg Tab 10 Mg PO HS Omeprazole 40 Mg Cap 40 Mg PO DAILY Xanax (Alprazolam) 1 Mg Tab 1 Mg PO BID PRN Reported Naproxen Sodium 220 Mg Tab 220 Mg PO DAILY PRN Aspirin 81 Mg Chew 81 Mg CHEW DAILY Review of Systems Except as stated in HPI: all other systems reviewed are Neg Physical Exam Narrative GENERAL:Well appearing, no acute distress SKIN: Focused skin assessment warm and dry. HEAD: Atraumatic. Normocephalic. EYES: Pupils equal and round. No injection or drainage. ENT: Moist mucous membranes NECK: Trachea midline. No cervical spine tenderness. CARDIOVASCULAR: Regular rate and rhythm. No murmur appreciated. 2+ right radial pulse with normal capillary refill. RESPIRATORY: Clear to auscultation. Breath sounds equal bilaterally. GASTROINTESTINAL: Abdomen soft, non-tender, nondistended. MUSCULOSKELETAL: Tender to palpation over the right elbow with swelling, diffusely tender to palpation over the humerus, wrist and right clavicle. No swelling of the left ankle, tender to palpation over the medial malleolus. NEUROLOGICAL: Awake and alert. No obvious cranial nerve deficits. Moving all extremities. PSYCHIATRIC: Appropriate mood and affect; insight and judgment normal. Data Data Last Documented VS Vital Signs Date Time Temp Pulse Resp B/P (MAP) Pulse Ox O2 Delivery O2 Flow Rate FiO2 04/27/17 15:27 75 16 120/57 (78) 96 Room Air 04/27/17 11:22 98.7 Orders Orders Ankle, Complete ([id number]) (04/27/17 ) Chest, Single Ap (04/27/17 ) Hydromorphone Pf Inj (Dilaudid Pf Inj) (04/27/17 12:00) Humerus, One View (04/27/17 ) Forearm (2vws) (04/27/17 ) Hydromorphone Pf Inj (Dilaudid Pf Inj) (04/27/17 13:15) Foot, Complete ([id number]) (04/27/17 ) Ct Elbow W/O Contrast (04/27/17 ) Ct Cerv Spine W/O Contrast (04/27/17 ) Splint Or Brace Apply/Monitor (04/27/17 14:06) Ondansetron Inj (Zofran Inj) (04/27/17 15:15) Hydromorphone Pf Inj (Dilaudid Pf Inj) (04/27/17 16:30) Fiberglass Splint Elbow Adult (04/27/17 ) Sling Cradle Arm (04/27/17 ) Consult Orthopedic (04/27/17 ) Admit Order (Ed Use Only) (04/27/17 17:09) MDM Medical Decision Making Medical Screen Exam Complete: Yes Emergency Medical Condition: Yes Interpretation(s) Last 24 hours Impressions Upper Extremity CT 04/27/17 0000 Signed Impressions: Service Date/Time: Thursday, April 27, 2017 14:43 - CONCLUSION: Severely comminuted fracture of the distal humerus. Aditya Briggs MD FACR Radius/Ulna X-Ray 04/27/17 0000 Signed Impressions: Service Date/Time: Thursday, April 27, 2017 12:29 - CONCLUSION: Comminuted supracondylar fracture elbow involves the lateral articular surface. CT with 3-D recon maybe helpful especially to exclude intra-articular fragments. Aditya Briggs MD FACR Humerus X-Ray 04/27/17 0000 Signed Impressions: Service Date/Time: Thursday, April 27, 2017 12:35 - CONCLUSION: Distal humeral fractures. The humeral shaft is intact Philipp Fagan MD Foot X-Ray 04/27/17 0000 Signed Impressions: Service Date/Time: Thursday, April 27, 2017 13:47 - CONCLUSION: Mild degenerative changes, no fracture.. Aditya Briggs MD FACR Chest X-Ray 04/27/17 0000 Signed Impressions: Service Date/Time: Thursday, April 27, 2017 13:55 - CONCLUSION: Left basilar streakiness consistent with chronic atelectasis and/or fibrotic scarring. Peng Finch MD Cervical Spine CT 04/27/17 0000 Signed Impressions: Service Date/Time: Thursday, April 27, 2017 14:34 - CONCLUSION: There is no fracture. Radiographically significant spinal stenosis at C5-C6 with right neural foraminal encroachment Moderate spinal stenosis at C6-C7 With right neural foraminal encroachment Aditya Briggs MD FACR Ankle X-Ray 04/27/17 0000 Signed Impressions: Service Date/Time: Thursday, April 27, 2017 12:36 - CONCLUSION: 2 questionable bone fragments adjacent to the talus and navicular bones could be tiny avulsion fractures. Philipp Fagan MD Differential Diagnosis intracranial hemorrhage, cervical spine fracture, humerus fracture, radius fracture, medial/lateral malleolus fracture Narrative Course This is a 62 year old female who presents to the emergency department having had a mechanical fall earlier today. She injured her right elbow and her left ankle. Xrays and CTs were ordered at the request of Dr. Hardin. Dr. Hardin ultimately decided the patient requires admission for surgery tomorrow with Dr. Soria. She has a normal neurovascular exam. She is opiate dependent and required multiple doses of dilaudid to obtain pain control in the emergency department. Physician Communication Physician Communication Discussed with Dr. Michelle and Dr. Soria Diagnosis Primary Impression: Supracondylar fracture of humerus Qualified Codes: S42.411A - Displaced simple supracondylar fracture without intercondylar fracture of right humerus, initial encounter for closed fracture Admitting Information Admitting Physician Requests: Admit Nafisa Zamorano MD Apr 27, 2017 13:01
--- NOTE | 2017-04-27 13:23 | RADRPT ---
EXAM DATE/TIME: 04/27/2017 12:29 CORRECTION Corrected on: April 27, 2017; [facility] COMPARISON: No previous studies available for comparison. INDICATIONS : Fall in parking lot, pain with deformity elbow. MEDICAL HISTORY : None. SURGICAL HISTORY : None. ENCOUNTER: Initial ACUITY: 1 day PAIN SCORE: 10/10 LOCATION: Right forearm FINDINGS: There is comminuted fracture of the distal humerus with fragmentation that extends into the lateral c ondyle. The large fragment of medial epicondyle as well. CT scan with 3-D reconstructions may be he lpful. CONCLUSION: Comminuted supracondylar fracture elbow involves the lateral articular surface. CT w ith 3-D recon maybe helpful especially to exclude intra-articular fragments. Aditya Briggs MD FACR on April 27, 2017 at 13:20 Board Certified Radiologist. This report was verified electronically. Aditya Briggs MD FACR on April 27, 2017 at 14:56 Board Certified Radiologist. This report was verified electronically.
--- NOTE | 2017-04-27 14:16 | RADRPT ---
EXAM DATE/TIME: 04/27/2017 13:47 [facility] COMPARISON: No previous studies available for comparison. INDICATIONS : Left lateral foot pain. MEDICAL HISTORY : None. SURGICAL HISTORY : None. ENCOUNTER: Initial ACUITY: 1 day PAIN SCORE: 8/10 LOCATION: Left foot FINDINGS: Three view examination of the left foot demonstrates no soft tissue swelling, dislocation, or fractur e. There are mild degenerative changes in the tarsals. The tarsal bones appear intact without frac ture.. The interphalangeal and metatarsophalangeal joints are intact. The calcaneus is intact. Bon y mineralization is normal. CONCLUSION: Mild degenerative changes, no fracture.. Aditya Briggs MD FACR on April 27, 2017 at 14:13 Board Certified Radiologist. This report was verified electronically.
--- NOTE | 2017-04-27 14:39 | RADRPT ---
EXAM DATE/TIME: 04/27/2017 13:55 [facility] COMPARISON: CHEST SINGLE AP, March 16, 2017, 20:08. INDICATIONS : Prior pneumonia 2 weeks ago, no chest complaints. MEDICAL HISTORY : Pneumonia SURGICAL HISTORY : None. ENCOUNTER: Initial ACUITY: 1 day PAIN SCORE: 0/10 LOCATION: Bilateral chest FINDINGS: The heart and mediastinal structures are normal. Streaky density is noted within the left lung base and is unchanged compared to the previous examination in March of 2017 consistent with atelectasis a nd/or scarring. The pulmonary vascular pattern is normal. The lungs are otherwise clear. Hardware is noted within the thoracolumbar spine. CONCLUSION: Left basilar streakiness consistent with chronic atelectasis and/or fibrotic scarring. Peng Finch MD on April 27, 2017 at 14:15 Board Certified Radiologist. This report was verified electronically.
[2017-04-27] MEDS ORDERED: ONDANSETRON HCL 4 MG/2 ML VIAL IV ONE (15:15)
--- NOTE | 2017-04-27 16:02 | RADRPT ---
EXAM DATE/TIME: 04/27/2017 14:34 [facility] COMPARISON: No previous studies available for comparison. INDICATIONS : Neck pain from fall. RADIATION DOSE: 29.94 CTDIvol (mGy) MEDICAL HISTORY : Hypertension. Myocardial infarction. CAD, Migrane. SURGICAL HISTORY : Cardiac cath ENCOUNTER: Initial ACUITY: 1 day PAIN SCALE: 8/10 LOCATION: Bilateral neck region. TECHNIQUE: Volumetric scanning of the cervical spine was performed. Multiplanar reconstructions in the sagittal, coronal and oblique axial planes were performed. Using automated exposure control and adjustment o f the mA and/or kV according to patient size, radiation dose was kept as low as reasonably achievable to obtain optimal diagnostic quality images. DICOM format image data is available electronically f or review and comparison. FINDINGS: VERTEBRAE: Degenerative changes are evident C5-C6 and C6-C7 with mild scoliosis. ALIGNMENT: No evidence of subluxation. C2-C3: The bony spinal canal is normal in size. No evidence of disc bulge or herniation. The neural forami na are bilaterally patent. C3-C4: Mild uncinate ridging is present without stenosis or fracture. C4-C5: The bony spinal canal is normal in size. No evidence of disc bulge or herniation. The neural forami na are bilaterally patent. C5-C6: Moderate uncinate ridging is present with moderate spinal stenosis. There is significant right-sided neural foramen encroachment. C6-C7: Moderate uncinate ridging is present with bilateral neural foramina encroachment dorsal the right. S khadar stenosis is mild. C7-T1: The bony spinal canal is normal in size. No evidence of disc bulge or herniation. The neural forami na are bilaterally patent. CONCLUSION: There is no fracture. Radiographically significant spinal stenosis at C5-C6 with right neural foraminal encroachment Moderate spinal stenosis at C6-C7 With right neural foraminal encroachment Aditya Briggs MD FACR on April 27, 2017 at 15:58 Board Certified Radiologist. This report was verified electronically.
[2017-04-27] MEDS ORDERED: HYDROmorphone HCL PF 0.5 MG/0.5 ML SYRINGE IV PUSH ONE (16:30)
--- NOTE | 2017-04-27 16:39 | RADRPT ---
EXAM DATE/TIME: 04/27/2017 14:43 [place] COMPARISON: No previous studies available for comparison. INDICATIONS : Right elbow pain from fall. RADIATION DOSE: 49.70 CTDIvol (mGy) MEDICAL HISTORY : Myocardial infarction. Hypertension. Migrane, CAD SURGICAL HISTORY : Cardiac cath ENCOUNTER: Initial ACUITY: 1 day PAIN SCALE: 8/10 LOCATION: Right elbow. TECHNIQUE: Volumetric scanning of the elbow was performed. Using automated exposure control and adjustment of t he mA and/or kV according to patient size, radiation dose was kept as low as reasonably achievable to obtain optimal diagnostic quality images. DICOM format image data is available electronically for r eview and comparison. FINDINGS: Again seen is the severely comminuted fracture of the distal humerus. There is fragmentation of the lateral condyle. Articulation radial head and radial head are intact.. The medial epicondyles is br oken into several large fragments. Olecranon fossa is grossly intact. CONCLUSION: Severely comminuted fracture of the distal humerus. Aditya Briggs MD FACR on April 27, 2017 at 16:36 Board Certified Radiologist. This report was verified electronically.
--- NOTE | 2017-04-27 17:43 | HHI.HP ---
[facility] No Primary Care Physician Admission Diagnosis supracondylar fracture Diagnoses: Chief Complaint: Fall, elbow pain Travel History International Travel<30 Days: No Contact w/Intl Traveler <30 Da: No Traveled to Known Affected Are: No History of Present Illness 62-year-old female with a past medical history of HTN, CAD, COPD, GERD, anxiety , chronic back pain, A. fib who presented after a fall. The patient states that today she was outside of a restaurant, and slipped on some wet leaves/ debris. She states that she twisted on her left ankle and landed on her right arm to avoid hitting her head. She had immediate pain in her right elbow and left ankle. She did not hit her head. She denies any other injury. She has been having some nausea since arriving in the ED, no vomiting. Pain is better controlled after IV Dilaudid. She was found to have a severely comminuted fracture of the right humerus and possible small avulsion fractures in her left ankle. Orthopedics was contacted from the ED and is planning on operative intervention tomorrow morning. Review of Systems Except as stated in HPI: all other systems reviewed are Neg Past Family Social History Past Medical History Hypertension Coronary artery disease COPD GERD Anxiety Chronic back pain Atrial fibrillation Past Surgical History Back surgery for replacement D&C Reported Medications Reported Meds & Active Scripts Active Cardizem CD 24 HR (Diltiazem CD 24 HR) 180 Mg Caper 180 Mg PO DAILY Lipitor (Atorvastatin Calcium) 10 Mg Tab 10 Mg PO HS Omeprazole 40 Mg Cap 40 Mg PO DAILY Xanax (Alprazolam) 1 Mg Tab 1 Mg PO BID PRN Reported Naproxen Sodium 220 Mg Tab 220 Mg PO DAILY PRN Aspirin 81 Mg Chew 81 Mg CHEW DAILY Allergies: Coded Allergies: No Known Allergies (Unverified , 04/27/17) Active Ordered Medications Current Medications Medications (Trade) Dose Ordered Sig/Stella Route Start Time Stop Time Status Last Admin (Xanax) 1 mg BID PRN PO 04/27/17 17:45 UNV (Lipitor) 10 mg HS PO 04/27/17 21:00 UNV (Cardizem Cd) 180 mg DAILY PO 04/28/17 09:00 UNV Non-Formulary Medication 40 mg DAILY PO 04/28/17 09:00 UNV Family History Mother had diabetes and heart disease Father had colon cancer with lung metastasis Social History Former tobacco use, quit 5 years ago Occasional alcohol use Works as a nurse Physical Exam Vital Signs Vital Signs Date Time Temp Pulse Resp B/P (MAP) Pulse Ox O2 Delivery O2 Flow Rate FiO2 04/27/17 15:27 75 16 120/57 (78) 96 Room Air 04/27/17 12:51 90 16 125/74 (91) 95 Room Air 04/27/17 11:31 92 16 167/74 (105) 95 Room Air 04/27/17 11:22 98.7 100 24 95 Physical Exam GENERAL: Well-developed well-nourished. In no acute distress. SKIN: Warm and dry. No lesions noted. HEENT: Normocephalic. Pupils equal and round. Mucous membranes pink and moist. CARDIOVASCULAR: Regular rate and rhythm. No murmur appreciated. RESPIRATORY: No accessory muscle use. Clear to auscultation. Breath sounds equal bilaterally. GASTROINTESTINAL: Abdomen soft, non-tender, nondistended. Bowel sounds x4. MUSCULOSKELETAL: Right upper extremity splinted. Good movement in the right hand fingers with brisk capillary refill. Left lateral ankle ecchymosis. NEUROLOGICAL: Awake and alert. No focal neurological deficits. Moves upper and lower extremities spontaneously. Normal speech. Sensation grossly intact in the right upper extremity. PSYCHIATRIC: Appropriate mood and affect; insight and judgment normal. Imaging Last Impressions Upper Extremity CT 04/27/17 0000 Signed Impressions: Service Date/Time: Thursday, April 27, 2017 14:43 - CONCLUSION: Severely comminuted fracture of the distal humerus. Aditya Briggs MD FACR Radius/Ulna X-Ray 04/27/17 0000 Signed Impressions: Service Date/Time: Thursday, April 27, 2017 12:29 - CONCLUSION: Comminuted supracondylar fracture elbow involves the lateral articular surface. CT with 3-D recon maybe helpful especially to exclude intra-articular fragments. Aditya Briggs MD FACR Humerus X-Ray 04/27/17 0000 Signed Impressions: Service Date/Time: Thursday, April 27, 2017 12:35 - CONCLUSION: Distal humeral fractures. The humeral shaft is intact Philipp Fagan MD Foot X-Ray 04/27/17 0000 Signed Impressions: Service Date/Time: Thursday, April 27, 2017 13:47 - CONCLUSION: Mild degenerative changes, no fracture.. Aditya Briggs MD FACR Chest X-Ray 04/27/17 0000 Signed Impressions: Service Date/Time: Thursday, April 27, 2017 13:55 - CONCLUSION: Left basilar streakiness consistent with chronic atelectasis and/or fibrotic scarring. Peng Finch MD Cervical Spine CT 04/27/17 0000 Signed Impressions: Service Date/Time: Thursday, April 27, 2017 14:34 - CONCLUSION: There is no fracture. Radiographically significant spinal stenosis at C5-C6 with right neural foraminal encroachment Moderate spinal stenosis at C6-C7 With right neural foraminal encroachment Aditya Briggs MD FACR Ankle X-Ray 04/27/17 0000 Signed Impressions: Service Date/Time: Thursday, April 27, 2017 12:36 - CONCLUSION: 2 questionable bone fragments adjacent to the talus and navicular bones could be tiny avulsion fractures. Philipp Fagan MD Caprini VTE Risk Assessment Caprini VTE Risk Assessment: Mod/High Risk (score >= 2) Caprini Risk Assessment Model Point Value = 1 Point Value = 2 Point Value = 3 Point Value = 5 Age 41-60 Minor surgery BMI > 25 kg/m2 Swollen legs Varicose veins or History of unexplained or recurrent spontaneous Oral contraceptives or hormone replacement Sepsis (< 1 month) Serious lung disease, including pneumonia (< 1 month) Abnormal pulmonary function Acute myocardial infarction Congestive heart failure (< 1 month) History of inflammatory bowel disease Medical patient at bed rest Age 61-74 Arthroscopic surgery Major open surgery (> 45 min) Laparoscopic surgery (> 45 min) Malignancy Confined to bed (> 72 hours) Immobilizing plaster cast Central venous access Age >= 75 History of VTE Family history of VTE Factor V Leiden Prothrombin [id number] Lupus anticoagulant Anticardiolipin antibodies Elevated serum homocysteine Heparin-induced thrombocytopenia Other congenital or acquired thrombophilia Stroke (< 1 month) Elective arthroplasty Hip, pelvis, or leg fracture Acute spinal cord injury (< 1 month) Prophylaxis Regimen Total Risk Factor Score Risk Level Prophylaxis Regimen 0-1 Low Early ambulation 2 Moderate Order ONE of the following: *Sequential Compression Device (SCD) *Heparin 5000 units SQ BID 3-4 Higher Order ONE of the following medications: *Heparin 5000 units SQ TID *Enoxaparin/Lovenox 40 mg SQ daily (WT < 150 kg, CrCl > 30 mL/min) *Enoxaparin/Lovenox 30 mg SQ daily (WT < 150 kg, CrCl > 10-29 mL/min) *Enoxaparin/Lovenox 30 mg SQ BID (WT < 150 kg, CrCl > 30 mL/min) AND/OR *Sequential Compression Device (SCD) 5 or more Highest Order ONE of the following medications: *Heparin 5000 units SQ TID (Preferred with Epidurals) *Enoxaparin/Lovenox 40 mg SQ daily (WT < 150 kg, CrCl > 30 mL/min) *Enoxaparin/Lovenox 30 mg SQ daily (WT < 150 kg, CrCl > 10-29 mL/min) *Enoxaparin/Lovenox 30 mg SQ BID (WT < 150 kg, CrCl > 30 mL/min) AND *Sequential Compression Device (SCD) Assessment and Plan Assessment and Plan 62-year-old female with a past medical history of HTN, CAD, COPD, GERD, anxiety , chronic back pain, A. fib who presented after a fall Mechanical fall: Imaging performed showed severely comminuted fracture of the right humerus and questionable tiny avulsion fractures in the left ankle. Otherwise imaging of the cervical spine, chest, foot, forearm showed no acute process/chronic changes. Activity per orthopedics. Severely comminuted right humeral fracture: Secondary to fall as above. Orthopedics consulted from the ED and planning on operative intervention. Continue pain control with oral and intravenous narcotics as needed. Check preop labs and EKG. Nothing by mouth overnight, IVF. Nausea: Secondary to pain or pain medication. No vomiting. Continue antiemetics as needed. Other chronic medical conditions include A. fib, anxiety, HLD, HTN, CAD, GERD: Stable at this time and will continue home medications as indicated. DVT prophylaxis: SCDs The exam, history, and the medical decision-making described in the above note were completed with the assistance of the mid-level provider. I reviewed and agree with the findings presented. I attest that I had a [id number] encounter with the patient on the same day, and personally performed and documented my assessment and findings in the medical record. Patient slipped and fell on some debris in the parking lot at [employer] and fractured her elbow. GENERAL: This is a well-nourished, well-developed patient, in no apparent distress. CARDIOVASCULAR: Normal rate and regular rhythm without murmurs, gallops, or rubs. RESPIRATORY: Good respiratory efforts. Breath sounds equal and clear to auscultation bilaterally. GASTROINTESTINAL: Abdomen soft, non-tender, non-distended. Normal active bowel sounds MUSCULOSKELETAL: Right upper extremity/ elbow is splinted. Neurovascularly intact at the fingers. Slight bruise on the lateral side of the left foot, range of motion intact. NEURO: Alert & Oriented x4 to person, place, time, situation. Moves all ext x4 PSYCH: Appropriate mood and affect. A/P" Mechanical fall with subsequent right humerus fracture and questionable tiny avulsion fracture in the left ankle. Orthopedic surgery consulted. Pain control. Continue home medications for her chronic conditions. Discussed Condition With Patient with family at bedside, ED , Martin Salamanca Apr 27, 2017 17:43 Stephanie Michelle MD Apr 27, 2017 20:17
[2017-04-27] MEDS ORDERED: SODIUM CHLORIDE 0.9% FLUSH 10 ML FLUSH IV FLUSH PRN (17:45)
[2017-04-27] MEDS ORDERED: SENNOSIDES 8.6 MG TAB PO PRN (17:45)
[2017-04-27] MEDS ORDERED: MAGNESIUM HYDROXIDE SUSP 30 ML CUP PO PRN (17:45)
[2017-04-27] MEDS ORDERED: BISACODYL 10 MG SUPP RECTAL PRN (17:45)
[2017-04-27] MEDS ORDERED: ACETAMINOPHEN 325 MG TAB PO PRN (17:45)
[2017-04-27] MEDS ORDERED: NALOXONE HCL 0.4 MG/ML AMP IV PUSH PRN (17:45)
[2017-04-27] MEDS ORDERED: LACTULOSE SYRUP 20 GM/30 ML CUP PO PRN (17:45)
[2017-04-27] MEDS ORDERED: PROMETHAZINE HCL 25 MG SUPP RECTAL PRN (18:00)
[2017-04-27] MEDS: SODIUM CHLOR 0.9% 1000 ML INJ 1,000 ML IV SCH (18:17)
[2017-04-27 18:21] LABS: APTT (PATIENT) 26.6 SEC (24.3-30.1); AUTOMATED NEUTROPHIL # 9.1 TH/MM3 (1.8-7.7); BASOPHIL % 0.3 % (0.0-2.0); EOSINOPHIL % 0.1 % (0.0-4.0); HEMATOCRIT 35.3 % (35.0-46.0); HEMO FLAGS DIFF FINAL; LYMPH % 19.5 % (9.0-44.0); LYMPHOCYTE # 2.4 TH/MM3 (1.0-4.8); MEAN CELL VOLUME 91.7 FL (80.0-100.0); MEAN CORPUSCULAR HEMOGLOBIN 31.2 PG (27.0-34.0); MONO % 5.4 % (0.0-8.0); NEUT % 74.7 % (16.0-70.0); PLATELET COUNT 334 TH/MM3 (150-450); PROTHROMBIN TIME - PATIENT 10.7 SEC (9.8-11.6); RED BLOOD COUNT 3.84 MIL/MM3 (4.00-5.30); RED CELL DISTRIBUTION WIDTH 13.3 % (11.6-17.2); WHITE BLOOD COUNT 12.2 TH/MM3 (4.0-11.0)
[2017-04-27 18:29] LABS: BICARBONATE 24.7 MEQ/L (21.0-32.0); POTASSIUM 4.2 MEQ/L (3.5-5.1)
[2017-04-27] MEDS: ALPRAZolam 1 MG TAB PO PRN (18:48)
[2017-04-27] MEDS: ONDANSETRON HCL 4 MG/2 ML VIAL IV PRN (20:39)
[2017-04-27] MEDS: HYDROmorphone HCL PF 1 MG/ML VIAL IV PUSH PRN (20:40)
[2017-04-27] MEDS: DOCUSATE SODIUM 50 MG/SENNA 8.6 MG TAB PO SCH (20:43)
[2017-04-27] MEDS: ATORVASTATIN 10 MG TAB PO SCH (20:43)
[2017-04-27] MEDS: SODIUM CHLORIDE 0.9% FLUSH 10 ML FLUSH IV FLUSH SCH (20:43)
[2017-04-27] MEDS ORDERED: SODIUM CHLORID 0.9% 500 ML IV PRN (22:45)
[2017-04-27] MEDS ORDERED: CHLORHEXIDINE GLUCONATE 2 % 1 PACK (2 CLOTHS) TOPICAL PRN (22:45)
[2017-04-27] MEDS ORDERED: LACTATED RINGER'S 1000 ML IV PRN (22:45)
[2017-04-27] MEDS ORDERED: POVIDONE IODINE 5% (ANTISEPSIS KIT) 4 APPLICATIONS EACH NARE PRN (22:45)
[2017-04-27] MEDS ORDERED: METOPROLOL TARTRATE 25 MG TAB PO PRN (22:45)
[2017-04-27] MEDS ORDERED: INSULIN HUMAN REGULAR 1,000 UNITS/10 ML VIAL SQ PRN (22:45)
[2017-04-28] MEDS: HYDROmorphone HCL PF 1 MG/ML VIAL IV PUSH PRN ×8 (01:05→23:31)
[2017-04-28] MEDS: SODIUM CHLOR 0.9% 1000 ML INJ 1,000 ML IV SCH (04:09)
[2017-04-28] MEDS: ONDANSETRON HCL 4 MG/2 ML VIAL IV PRN ×2 (04:10→18:04)
[2017-04-28 04:40] VITALS: BP 119/59; PULSE 90; RESP 17; TEMP 99.3; O2SAT 92
--- NOTE | 2017-04-28 07:37 | PD.ORT.PN ---
Subjective Subjective Remarks s/p fall at restaurant. reports right arm pain and left ankle pain Objective Vitals Vital Signs Date Time Temp Pulse Resp B/P (MAP) Pulse Ox O2 Delivery O2 Flow Rate FiO2 04/28/17 04:40 99.3 90 17 119/59 (79) 92 04/27/17 23:25 97.7 90 17 101/52 (68) 92 04/27/17 19:00 94 21 04/27/17 18:54 04/27/17 18:52 98.4 90 17 122/64 (83) 95 04/27/17 18:07 94 21 04/27/17 15:27 75 16 120/57 (78) 96 Room Air 04/27/17 12:51 90 16 125/74 (91) 95 Room Air 04/27/17 11:31 92 16 167/74 (105) 95 Room Air 04/27/17 11:22 98.7 100 24 95 I/O 04/27/17 04/27/17 04/27/17 04/28/17 04/28/17 04/28/17 07:00 15:00 23:00 07:00 15:00 23:00 Intake Total 490 ml 868 ml 480 ml Output Total 1350 ml 900 ml Balance -860 ml 868 ml -420 ml Intake Oral 240 ml 480 ml IV Total 250 ml 868 ml Output Urine Total 1350 ml 900 ml # Bowel Movements 0 0 Result Diagram: 04/27/17 1800 04/27/17 1800 Other Results Laboratory Tests Test 04/27/17 18:00 Prothromb Time International Ratio 1.0 RATIO Prothrombin Time 10.7 SEC (9.8-11.6) Objective Remarks RUE: +long arm splint. intact. full sensation to median/ulnar nerve. good radial nerve function. LLE: full motion of ankle. tenderness to palpation of lateral ankle. mild swelling Assessment & Plan Assessment and Plan 1) Right Distal Humerus Fx -regular diet -npo after MN -NWB -maintain splint -consents -surgery tomorrow 2) Left Lateral Ankle Sprain -WBAT -no restrictions Leonardo Valenzuela Apr 28, 2017 07:37
[2017-04-28 08:00] VITALS: BP 107/68; PULSE 91; RESP 18; TEMP 99.8; O2SAT 93
[2017-04-28 08:27] LABS: AUTOMATED NEUTROPHIL # 4.1 TH/MM3 (1.8-7.7); BASOPHIL % 0.5 % (0.0-2.0); EOSINOPHIL # 0.1 TH/MM3 (0-0.4); EOSINOPHIL % 0.8 % (0.0-4.0); HEMATOCRIT 33.5 % (35.0-46.0); HEMO FLAGS DIFF FINAL; LYMPH % 38.6 % (9.0-44.0); MEAN CELL VOLUME 92.3 FL (80.0-100.0); MEAN CORPUSCULAR HEMOGLOBIN 31.3 PG (27.0-34.0); MEAN CORPUSCULAR HGB CONC 33.9 % (32.0-36.0); MONO % 7.5 % (0.0-8.0); NEUT % 52.6 % (16.0-70.0); PLATELET COUNT 328 TH/MM3 (150-450); RED BLOOD COUNT 3.63 MIL/MM3 (4.00-5.30); RED CELL DISTRIBUTION WIDTH 13.6 % (11.6-17.2); WHITE BLOOD COUNT 7.7 TH/MM3 (4.0-11.0)
[2017-04-28] MEDS: PANTOPRAZOLE SOD 40 MG DELAYED RELEASE TAB PO SCH (09:04)
[2017-04-28] MEDS: DOCUSATE SODIUM 50 MG/SENNA 8.6 MG TAB PO SCH ×2 (09:04→19:54)
[2017-04-28] MEDS: DILTIAZEM-CD 180 MG CAP ER PO SCH (09:05)
[2017-04-28] MEDS: ACETAMINOPHEN/HYDROcodone 325 MG/10 MG TAB PO PRN ×4 (09:05→20:41)
[2017-04-28] MEDS: ALPRAZolam 1 MG TAB PO PRN ×2 (09:08→21:19)
[2017-04-28] MEDS ORDERED: KETOROLAC TROMETHAMINE 30 MG/ML (IVP) VIAL IV PUSH ONE (10:00)
[2017-04-28 11:39] VITALS: O2SAT 94
[2017-04-28 12:00] VITALS: BP 114/54; PULSE 85; RESP 18; TEMP 98.4; O2SAT 93
[2017-04-28 16:00] VITALS: BP 120/60; PULSE 90; RESP 18; TEMP 99.5; O2SAT 93
--- NOTE | 2017-04-28 19:16 | HHI.PR ---
Subjective Remarks Patient denies any acute events since admission, tolerating by mouth intake well , has a Dangelo in Objective Vital Signs Date Time Temp Pulse Resp B/P (MAP) Pulse Ox O2 Delivery O2 Flow Rate FiO2 04/28/17 16:00 99.5 90 18 120/60 (80) 93 04/28/17 12:00 98.4 85 18 114/54 (74) 93 04/28/17 11:39 94 21 04/28/17 08:00 99.8 91 18 107/68 (81) 93 04/28/17 04:40 99.3 90 17 119/59 (79) 92 04/27/17 23:25 97.7 90 17 101/52 (68) 92 I/O 04/27/17 04/27/17 04/27/17 04/28/17 04/28/17 04/28/17 07:00 15:00 23:00 07:00 15:00 23:00 Intake Total 490 ml 868 ml 480 ml Output Total 1350 ml 900 ml Balance -860 ml 868 ml -420 ml Intake Oral 240 ml 480 ml IV Total 250 ml 868 ml Output Urine Total 1350 ml 900 ml # Bowel Movements 0 0 Result Diagram: 04/28/17 0710 04/28/17 0710 A/P Assessment and Plan 62-year-old female with a past medical history of HTN, CAD, COPD, GERD, anxiety , chronic back pain, A. fib who presented after a fall Mechanical fall: Imaging performed showed severely comminuted fracture of the right humerus and questionable tiny avulsion fractures in the left ankle. Otherwise imaging of the cervical spine, chest, foot, forearm showed no acute process/chronic changes. Activity per orthopedics. Severely comminuted right humeral fracture: Secondary to fall as above. Orthopedics plans for OR tomorrow. Nausea: Secondary to pain or pain medication. No vomiting. Continue antiemetics as needed. Other chronic medical conditions include A. fib, anxiety, HLD, HTN, CAD, GERD: Stable at this time and will continue home medications as indicated. DVT prophylaxis: SCDs Patient slipped and fell on some debris in the parking lot at [employer] and fractured her elbow. Mitchel He MD Apr 28, 2017 19:15
[2017-04-28] MEDS: SODIUM CHLORIDE 0.9% FLUSH 10 ML FLUSH IV FLUSH SCH (19:54)
[2017-04-28] MEDS: ATORVASTATIN 10 MG TAB PO SCH (19:54)
--- NOTE | 2017-04-28 20:36 | EKG ---
Date Performed: 04/27/2017 Time Performed: 18:08:30 PTAGE: 62 years EKG: Sinus rhythm NORMAL ECG PREVIOUS TRACING : 03/17/2017 02.28 Compared to prior tracing no significant change DOCTOR: Jonel Ocasio Interpretating Date/Time 04/28/2017 20:35:24
[2017-04-28 20:55] VITALS: BP 125/63; PULSE 95; RESP 18; TEMP 98.9; O2SAT 96
[2017-04-29] VITALS: BP 120/67; PULSE 105; RESP 18; TEMP 100.1; O2SAT 95
[2017-04-29] MEDS: ACETAMINOPHEN/HYDROcodone 325 MG/10 MG TAB PO PRN ×4 (01:20→22:13)
[2017-04-29] MEDS: HYDROmorphone HCL PF 1 MG/ML VIAL IV PUSH PRN ×4 (02:48→21:30)
[2017-04-29 04:43] VITALS: BP 138/59; PULSE 95; RESP 18; TEMP 99.9; O2SAT 95
[2017-04-29] MEDS ORDERED: HYDR-3583 PO (06:51)
--- NOTE | 2017-04-29 06:52 | PD.ORT.PN ---
Subjective Subjective Remarks s/p fall at restaurant. reports right arm pain and left ankle pain Objective Vitals Vital Signs Date Time Temp Pulse Resp B/P (MAP) Pulse Ox O2 Delivery O2 Flow Rate FiO2 04/29/17 04:43 99.9 95 18 138/59 (85) 95 04/29/17 00:00 100.1 105 18 120/67 (84) 95 04/28/17 20:55 98.9 95 18 125/63 (83) 96 04/28/17 16:00 99.5 90 18 120/60 (80) 93 04/28/17 12:00 98.4 85 18 114/54 (74) 93 04/28/17 11:39 94 21 04/28/17 08:00 99.8 91 18 107/68 (81) 93 I/O 04/28/17 04/28/17 04/28/17 04/29/17 04/29/17 04/29/17 07:00 15:00 23:00 07:00 15:00 23:00 Intake Total 868 ml 480 ml 1606 ml 992 ml Output Total 900 ml 250 ml Balance 868 ml -420 ml 1356 ml 992 ml Intake Oral 480 ml 240 ml IV Total 868 ml 1366 ml 992 ml Output Urine Total 900 ml 250 ml # Bowel Movements 0 2 Result Diagram: 04/28/1710 04/28/17709 Objective Remarks RUE: +long arm splint. intact. full sensation to median/ulnar nerve. good radial nerve function. LLE: full motion of ankle. tenderness to palpation of lateral ankle. mild swelling Assessment & Plan Assessment and Plan 1) Right Distal Humerus Fx -surgery today 2) Left Lateral Ankle Sprain -WBAT -no restrictions Leonardo Valenzuela Apr 29, 2017 06:52
--- NOTE | 2017-04-29 07:10 | PD.ORT.PN ---
Subjective Subjective Remarks Fall in [employer] parking lot. Slip and fall over debris and pain and deformity of right elbow. No other associated injuries. States that she does have full extension and flexion of all her fingers Objective Vitals Vital Signs Date Time Temp Pulse Resp B/P (MAP) Pulse Ox O2 Delivery O2 Flow Rate FiO2 04/29/17 04:43 99.9 95 18 138/59 (85) 95 04/29/17 00:00 100.1 105 18 120/67 (84) 95 04/28/17 20:55 98.9 95 18 125/63 (83) 96 04/28/17 16:00 99.5 90 18 120/60 (80) 93 04/28/17 12:00 98.4 85 18 114/54 (74) 93 04/28/17 11:39 94 21 04/28/17 08:00 99.8 91 18 107/68 (81) 93 I/O 04/28/17 04/28/17 04/28/17 04/29/17 04/29/17 04/29/17 07:00 15:00 23:00 07:00 15:00 23:00 Intake Total 868 ml 480 ml 1606 ml 992 ml Output Total 900 ml 250 ml 400 ml Balance 868 ml -420 ml 1356 ml 592 ml Intake Oral 480 ml 240 ml 0 ml IV Total 868 ml 1366 ml 992 ml Output Urine Total 900 ml 250 ml 400 ml # Bowel Movements 0 2 2 Result Diagram: 04/28/17 0710 04/28/17 0710 Imaging Last 72 hours Impressions Upper Extrem[address] CT 04/27/17 0000 Signed Impressions: Service Date/Time: Thursday, April 27, 2017 14:43 - CONCLUSION: Severely comminuted fracture of the distal humerus. Aditya Briggs MD FACR Radius/Ulna X-Ray 04/27/17 0000 Signed Impressions: Service Date/Time: Thursday, April 27, 2017 12:29 - CONCLUSION: Comminuted supracondylar fracture elbow involves the lateral articular surface. CT with 3-D recon maybe helpful especially to exclude intra-articular fragments. Aditya Briggs MD FACR Humerus X-Ray 04/27/17 0000 Signed Impressions: Service Date/Time: Thursday, April 27, 2017 12:35 - CONCLUSION: Distal humeral fractures. The humeral shaft is intact Philipp Fagan MD Foot X-Ray 04/27/17 0000 Signed Impressions: Service Date/Time: Thursday, April 27, 2017 13:47 - CONCLUSION: Mild degenerative changes, no fracture.. Aditya Briggs MD FACR Chest X-Ray 04/27/17 0000 Signed Impressions: Service Date/Time: Thursday, April 27, 2017 13:55 - CONCLUSION: Left basilar streakiness consistent with chronic atelectasis and/or fibrotic scarring. Peng Finch MD Cervical Spine CT 04/27/17 0000 Signed Impressions: Service Date/Time: Thursday, April 27, 2017 14:34 - CONCLUSION: There is no fracture. Radiographically significant spinal stenosis at C5-C6 with right neural foraminal encroachment Moderate spinal stenosis at C6-C7 With right neural foraminal encroachment Aditya Briggs MD FACR Ankle X-Ray 04/27/17 0000 Signed Impressions: Service Date/Time: Thursday, April 27, 2017 12:36 - CONCLUSION: 2 questionable bone fragments adjacent to the talus and navicular bones could be tiny avulsion fractures. Philipp Fagan MD Objective Remarks RUE: +long arm splint. intact. full sensation to median/ulnar nerve. good radial nerve function. LLE: full motion of ankle. tenderness to palpation of lateral ankle. mild swelling Assessment & Plan Assessment and Plan 1) Right Distal Humerus Fx -surgery today - both surgical and conservative measures are discussed. She understands due to the fracture location and the joint line involvement she will continue to have difficulty with stiffness and recovering full range of motion of the elbow. Nothing by mouth Sign consents 2) Left Lateral Ankle Sprain -WBAT -no restrictions Blair Francis Jr. Apr 29, 2017 07:10
[2017-04-29 08:00] VITALS: BP 116/67; PULSE 95; RESP 18; TEMP 100.6; O2SAT 96
[2017-04-29] MEDS: PANTOPRAZOLE SOD 40 MG DELAYED RELEASE TAB PO SCH (08:51)
[2017-04-29] MEDS: DILTIAZEM-CD 180 MG CAP ER PO SCH (08:51)
[2017-04-29 09:10] VITALS: O2SAT 96
[2017-04-29] MEDS ORDERED: HYDROmorphone HCL PF 2 MG/ML VIAL ONE (10:24)
[2017-04-29] MEDS ORDERED: APREPITANT 40 MG CAP ONE (10:42)
[2017-04-29] MEDS ORDERED: ceFAZolin 2 GM PREMIX 50 ML ONE (11:29)
[2017-04-29] MEDS ORDERED: VANCOMYCIN HCL 1000 MG VIAL ONE (11:29)
[2017-04-29] MEDS ORDERED: GENTAMICIN SULFATE 80 MG/2 ML VIAL ONE (11:30)
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
[2017-04-29] MEDS ORDERED: MIDAZOLAM HCL 2 MG/2 ML VIAL IV ONE (13:26)
[2017-04-29] MEDS ORDERED: PROPOFOL 200 MG/20 ML AMP IV ONE (13:26)
[2017-04-29] MEDS ORDERED: ONDANSETRON HCL 4 MG/2 ML VIAL IV PUSH ONE (13:26)
[2017-04-29] MEDS ORDERED: LACTATED RINGER'S 1000 ML INJ 1,000 ML IV ONE (13:26)
[2017-04-29] MEDS ORDERED: NEOSTIGMINE 3 MG/3 ML SYR IV ONE (13:26)
[2017-04-29] MEDS ORDERED: ePHEDrine/NS 25 MG/5 ML SYR IV ONE (13:26)
--- NOTE | 2017-04-29 14:27 | PD.OP ---
cc: Morgan Wright MD Operative Report Date of Surgery: Apr 29, 2017 Preoperative Diagnosis: Severely comminuted intra-articular right distal humerus fracture Postoperative Diagnosis: Procedure: Open reduction internal fixation right distal humerus supracondylar intra- articular fracture Anesthesia: Gen. Surgeon: Morgan Wright Potato Chip Frier(s): LUIS Jimenez PA-C The surgical procedure was assisted by my physician orthodontist assistant. My P.A. presence was necessary throughout this case for the manipulation and positioning of the surgical extremity. My P.A. was assisting me throughout the duration of this procedure. The skill set of a physician orthodontist assistant was medically necessary to complete this procedure. During the surgical case the surgical supplies sterilizer was working at the back table and the physician orthodontist assistant was directly assisting me. Operation and Findings: Patient was seen and evaluated preoperatively. Treatment options were discussed regarding severely comminuted intra-articular right distal humerus fracture including surgical and nonsurgical treatments. After detailed discussion of risk and benefits of procedure patient wishes to proceed with surgery. Risks of surgery include bleeding, infection, nonunion, malunion, painful hardware, loss of motion of shoulder and elbow, weakness and numbness of arm, ulnar nerve injury as well as medical competitions including blood clots stroke and . Patient was brought to operating room and placed on the OR table. GETA was administered by anesthesiologist. Patient was positioned in lateral decubitus position. Extremities were well-padded. Axillary roll was placed. Operative arm and shoulder were prepped with alcohol followed by Hibiclens and draped usual sterile fashion. Timeout procedure was performed. IV antibiotics were given prior to incision. A standard posterior approach was utilized. Subcutaneous tissues was dissected with Bovie. The lateral border of the triceps was elevated off of the distal humerus. Fracture site was visualized. Next, the ulnar nerve was identified and protected throughout the procedure. The nerve was intact. The fracture was identified along the medial distal humerus. Soft tissue was removed from the fracture site. Fracture site was cleaned with curettes. At this point the fracture was reduced using fracture tenaculums. There was comminution along both the medial and lateral columns. The fracture fragments were inflated to achieve excellent reduction. Multiplanar fluoroscopy confirmed excellent of fracture. Synthes distal humerus plates were selected. The medial plate was provisionally held the bone with K wires. 3.5 cortical screws were placed to compress plate to bone. Multiple 2.7 locking screws were placed distally. Care was taken to keep screws from penetrating the articular surface. Multiple screws were placed in each side of the fracture. All screws were predrilled and premeasured for appropriate length. Next the lateral plate was placed along the posterior lateral humerus. Plate was provisionally held to bone with K wires. 3.5 cortical screws were used to compress plate to bone. Additional 2.7 locking screws were placed distally. K wires were removed. Final fluoroscopy revealed excellent alignment of fracture with well-placed hardware. Incision was thoroughly irrigated. Fascia was closed with #1 Vicryl, subcutaneous tissues closed with 3-0 Vicryl, and skin was closed with analy. Sterile dressings were applied. Needle and sponge counts were correct. Patient was placed into a sling, and then transferred to recovery room in stable condition Morgan Wright MD Apr 29, 2017 14:27
[2017-04-29] MEDS ORDERED: Post-op Orders (for Pharmacy) MISC XX ONE (14:30)
[2017-04-29] MEDS ORDERED: MORPHINE SULFATE 4 MG/ML INJ IV PUSH PRN (14:30)
[2017-04-29] MEDS ORDERED: DO NOT ADM ANY ANTICOAGULANT DRUGS PRN (14:52)
--- NOTE | 2017-04-29 14:58 | RADRPT ---
EXAM DATE/TIME: 04/29/2017 14:07 [facility] COMPARISON: No previous studies available for comparison. INDICATIONS : ORIF of the distal right humerus. MEDICAL HISTORY : Hypertension. Chronic obstructive pulmonary disease. Arthritis. SURGICAL HISTORY : Fusion, lumbar. ENCOUNTER: Subsequent ACUITY: 2 days PAIN SCORE: Non-responsive. LOCATION: Right distal humerus. FINDINGS: Plate with screws is seen bridging the fractures of the distal humerus. Radius and all are intact. CONCLUSION: Anatomic alignment. Aditya Briggs MD FACR on April 29, 2017 at 14:53 Board Certified Radiologist. This report was verified electronically.
[2017-04-29] MEDS ORDERED: *HYDROmorphone PF 1 MG VIAL PERIprocedural Use ONLY ONE (15:25)
--- NOTE | 2017-04-29 15:25 | PD.ORT.PN ---
Subjective Subjective Remarks POD 0 s/p ORIF right distal humerus stable in PACU Objective Vitals Vital Signs Date Time Temp Pulse Resp B/P (MAP) Pulse Ox O2 Delivery O2 Flow Rate FiO2 04/29/17 15:00 100 20 119/62 (81) 97 Nasal Cannula 2 04/29/17 14:51 100.8 100 16 115/66 (82) 95 Nasal Cannula 2 04/29/17 09:10 96 Nasal Cannula 2.00 04/29/17 08:00 100.6 95 18 116/67 (83) 96 04/29/17 04:43 99.9 95 18 138/59 (85) 95 04/29/17 00:00 100.1 105 18 120/67 (84) 95 04/28/17 20:55 98.9 95 18 125/63 (83) 96 04/28/17 16:00 99.5 90 18 120/60 (80) 93 I/O 04/28/17 04/28/17 04/28/17 04/29/17 04/29/17 04/29/17 07:00 15:00 23:00 07:00 15:00 23:00 Intake Total 868 ml 480 ml 1606 ml 992 ml 1300 ml Output Total 900 ml 250 ml 400 ml 1800 ml Balance 868 ml -420 ml 1356 ml 592 ml -500 ml Intake Oral 480 ml 240 ml 0 ml IV Total 868 ml 1366 ml 992 ml Other 1300 ml Output Urine Total 900 ml 250 ml 400 ml 1600 ml Estimated Blood Loss 200 ml # Bowel Movements 0 2 2 Result Diagram: 04/28/17 0710 04/28/17 0710 Imaging Last 72 hours Impressions Upper Extremity CT 04/27/17 0000 Signed Impressions: Service Date/Time: Thursday, April 27, 2017 14:43 - CONCLUSION: Severely comminuted fracture of the distal humerus. Aditya Briggs MD FACR Radius/Ulna X-Ray 04/27/17 0000 Signed Impressions: Service Date/Time: Thursday, April 27, 2017 12:29 - CONCLUSION: Comminuted supracondylar fracture elbow involves the lateral articular surface. CT with 3-D recon maybe helpful especially to exclude intra-articular fragments. Aditya Briggs MD FACR Humerus X-Ray 04/27/17 0000 Signed Impressions: Service Date/Time: Thursday, April 27, 2017 12:35 - CONCLUSION: Distal humeral fractures. The humeral shaft is intact Philipp Fagan MD Foot X-Ray 04/27/17 0000 Signed Impressions: Service Date/Time: Thursday, April 27, 2017 13:47 - CONCLUSION: Mild degenerative changes, no fracture.. Aditya Briggs MD FACR Chest X-Ray 04/27/17 0000 Signed Impressions: Service Date/Time: Thursday, April 27, 2017 13:55 - CONCLUSION: Left basilar streakiness consistent with chronic atelectasis and/or fibrotic scarring. Peng Finch MD Cervical Spine CT 04/27/17 0000 Signed Impressions: Service Date/Time: Thursday, April 27, 2017 14:34 - CONCLUSION: There is no fracture. Radiographically significant spinal stenosis at C5-C6 with right neural foraminal encroachment Moderate spinal stenosis at C6-C7 With right neural foraminal encroachment Aditya Briggs MD FACR Ankle X-Ray 04/27/17 0000 Signed Impressions: Service Date/Time: Thursday, April 27, 2017 12:36 - CONCLUSION: 2 questionable bone fragments adjacent to the talus and navicular bones could be tiny avulsion fractures. Philipp Fagan MD Objective Remarks RUE: +long arm splint. intact. Assessment & Plan Assessment and Plan 1) Right Distal Humerus Fx s/p ORIF - POD 0 -NWB -maintain splint at all times -Rx on chart -plan for DC home Tuesday if stable -f/u with [facility] or [facility] in 2 weeks 2) Left Lateral Ankle Sprain -WBAT -no restrictions Leonardo Valenzuela Apr 29, 2017 15:25
[2017-04-29 16:30] VITALS: BP 98/65; PULSE 83; RESP 18; TEMP 98.6; O2SAT 95
[2017-04-29] MEDS: ceFAZolin 2 GM PREMIX 50 ML IV SCH (16:43)
[2017-04-29] MEDS: KETOROLAC TROMETHAMINE 30 MG/ML (IVP) VIAL IV PUSH SCH (16:43)
[2017-04-29] MEDS: ALPRAZolam 1 MG TAB PO PRN (16:43)
--- NOTE | 2017-04-29 19:27 | HHI.PR ---
Subjective Remarks tolerated operation well, POD #0. Patient claims she had a fever of 101.3. But after seeing the patient her chart review shows a height she had was a 100.1. Patient is tolerating meals well, says she has a chronic cough, is asking for Benadryl for allergies Objective Vital Signs Date Time Temp Pulse Resp B/P (MAP) Pulse Ox O2 Delivery O2 Flow Rate FiO2 04/29/17 16:30 98.6 83 18 98/65 (76) 95 04/29/17 16:00 99.3 84 20 96/52 (67) 96 Nasal Cannula 2 04/29/17 15:45 81 12 101/55 (70) 95 04/29/17 15:30 89 12 100/49 (66) 97 04/29/17 15:15 87 17 114/58 (76) 95 04/29/17 15:00 100 20 119/62 (81) 97 Nasal Cannula 2 04/29/17 14:51 100.8 100 16 115/66 (82) 95 Nasal Cannula 2 04/29/17 09:10 96 Nasal Cannula 2.00 04/29/17 08:00 100.6 95 18 116/67 (83) 96 04/29/17 04:43 99.9 95 18 138/59 (85) 95 04/29/17 00:00 100.1 105 18 120/67 (84) 95 04/28/17 20:55 98.9 95 18 125/63 (83) 96 I/O 04/28/17 04/28/17 04/28/17 04/29/17 04/29/17 04/29/17 07:00 15:00 23:00 07:00 15:00 23:00 Intake Total 868 ml 480 ml 1606 ml 992 ml 1300 ml Output Total 900 ml 250 ml 400 ml 1800 ml Balance 868 ml -420 ml 1356 ml 592 ml -500 ml Intake Oral 480 ml 240 ml 0 ml IV Total 868 ml 1366 ml 992 ml Other 1300 ml Output Urine Total 900 ml 250 ml 400 ml 1600 ml Estimated Blood Loss 200 ml # Bowel Movements 0 2 2 Result Diagram: 04/28/17 0710 04/28/17 0710 Objective Remarks No acute distress Right arm in sling and postop dressing, able to wiggle her fingers on the right hand Is sitting up with good range of motion of plantar flexion and dorsiflexion of both ankles Breath sounds are clear bilaterally and are adequate Heart rate is regular rate and rhythm, no murmurs A/P Assessment and Plan 62-year-old female with a past medical history of HTN, CAD, COPD, GERD, anxiety , chronic back pain, A. fib who presented after a fall severely comminuted fracture of the right humerus 2/2 mechanical fall and questionable tiny avulsion fractures in the left ankle - postop day 0 Nausea: Improved, continued to antiemetics as needed reports chronic allergies - will start benadryl prn itching per pt's request Other chronic medical conditions include A. fib, anxiety, HLD, HTN, CAD, GERD: Stable at this time and will continue home medications as indicated. DVT prophylaxis: will switch over to lovenox given that patient has afib and inpt risk of VTE Mitchel He MD Apr 29, 2017 19:27
[2017-04-29] MEDS ORDERED: diphenhydrAMINE HCL 25 MG CAP PO PRN (19:30)
[2017-04-29] MEDS ORDERED: KETOROLAC TROMETHAMINE 60 MG/2 ML (IM) VIAL IM PRN (19:45)
[2017-04-29 20:00] VITALS: BP 99/53; PULSE 84; RESP 16; TEMP 97; O2SAT 92
[2017-04-29] MEDS ORDERED: ENOXAPARIN SODIUM 30 MG/0.3 ML SYRINGE SQ SCH (20:00)
[2017-04-29] MEDS: SODIUM CHLOR 0.9% 1000 ML INJ 1,000 ML IV SCH (20:00)
[2017-04-29] MEDS: ATORVASTATIN 10 MG TAB PO SCH (21:29)
[2017-04-29] MEDS: CALCIUM/VITAMIN D 250 MG/125 U TAB PO SCH (21:29)
[2017-04-29] MEDS: SODIUM CHLORIDE 0.9% FLUSH 10 ML FLUSH IV FLUSH SCH (21:36)
[2017-04-29] MEDS: DOCUSATE SODIUM 50 MG/SENNA 8.6 MG TAB PO SCH (21:36)
[2017-04-30] MEDS: KETOROLAC TROMETHAMINE 30 MG/ML (IVP) VIAL IV PUSH SCH ×3 (01:14→16:00)
[2017-04-30] MEDS: ceFAZolin 2 GM PREMIX 50 ML IV SCH ×2 (01:14→09:08)
[2017-04-30 01:35] VITALS: BP 83/51; PULSE 64; RESP 18; TEMP 96.8; O2SAT 92
[2017-04-30] MEDS ORDERED: SODIUM CHLORID 0.9% 500 ML INJ 500 ML IV ONE (01:45)
[2017-04-30 02:40] VITALS: BP 81/45
[2017-04-30] MEDS: HYDROmorphone HCL PF 1 MG/ML VIAL IV PUSH PRN (03:17)
[2017-04-30 03:20] VITALS: BP 92/60; PULSE 78; RESP 18; TEMP 97.1; O2SAT 93
[2017-04-30] MEDS: SODIUM CHLOR 0.9% 1000 ML INJ 1,000 ML IV SCH (06:17)
[2017-04-30 08:00] VITALS: BP 98/54; PULSE 66; RESP 19; TEMP 95.6; O2SAT 94
--- NOTE | 2017-04-30 08:27 | PD.ORT.PN ---
Subjective Post Op Day #: 1 Subjective Remarks pain under control. Objective Vitals Vital Signs Date Time Temp Pulse Resp B/P (MAP) Pulse Ox O2 Delivery O2 Flow Rate FiO2 04/30/17 03:20 97.1 78 18 92/60 (71) 93 04/30/17 02:40 81/45 (57) 04/30/17 01:35 96.8 64 18 83/51 (62) 92 04/29/17 20:00 97.0 84 16 99/53 (68) 92 04/29/17 16:30 98.6 83 18 98/65 (76) 95 04/29/17 16:00 99.3 84 20 96/52 (67) 96 Nasal Cannula 2 04/29/17 15:45 81 12 101/55 (70) 95 04/29/17 15:30 89 12 100/49 (66) 97 04/29/17 15:15 87 17 114/58 (76) 95 04/29/17 15:00 100 20 119/62 (81) 97 Nasal Cannula 2 04/29/17 14:51 100.8 100 16 115/66 (82) 95 Nasal Cannula 2 04/29/17 09:10 96 Nasal Cannula 2.00 I/O 04/29/17 04/29/17 04/29/17 04/30/17 04/30/17 04/30/17 07:00 15:00 23:00 07:00 15:00 23:00 Intake Total 992 ml 1300 ml 1511 ml 1638 ml Output Total 400 ml 1800 ml 300 ml 600 ml Balance 592 ml -500 ml 1211 ml 1038 ml Intake Oral 0 ml 960 ml 720 ml IV Total 992 ml 551 ml 918 ml Other 1300 ml Output Urine Total 400 ml 1600 ml 300 ml 600 ml Estimated Blood Loss 200 ml # Bowel Movements 2 0 Result Diagram: 04/28/17 0710 04/28/17 0710 Imaging Last 72 hours Impressions Upper Extremity CT 04/27/17 0000 Signed Impressions: Service Date/Time: Thursday, April 27, 2017 14:43 - CONCLUSION: Severely comminuted fracture of the distal humerus. Aditya Briggs MD FACR Radius/Ulna X-Ray 04/27/17 0000 Signed Impressions: Service Date/Time: Thursday, April 27, 2017 12:29 - CONCLUSION: Comminuted supracondylar fracture elbow involves the lateral articular surface. CT with 3-D recon maybe helpful especially to exclude intra-articular fragments. Aditya Briggs MD FACR Humerus X-Ray 04/27/17 0000 Signed Impressions: Service Date/Time: Thursday, April 27, 2017 12:35 - CONCLUSION: Distal humeral fractures. The humeral shaft is intact Philipp Fagan MD Foot X-Ray 04/27/17 0000 Signed Impressions: Service Date/Time: Thursday, April 27, 2017 13:47 - CONCLUSION: Mild degenerative changes, no fracture.. Aditya Briggs MD FACR Chest X-Ray 04/27/17 0000 Signed Impressions: Service Date/Time: Thursday, April 27, 2017 13:55 - CONCLUSION: Left basilar streakiness consistent with chronic atelectasis and/or fibrotic scarring. Peng Finch MD Cervical Spine CT 04/27/17 0000 Signed Impressions: Service Date/Time: Thursday, April 27, 2017 14:34 - CONCLUSION: There is no fracture. Radiographically significant spinal stenosis at C5-C6 with right neural foraminal encroachment Moderate spinal stenosis at C6-C7 With right neural foraminal encroachment Aditya Briggs MD FACR Ankle X-Ray 04/27/17 0000 Signed Impressions: Service Date/Time: Thursday, April 27, 2017 12:36 - CONCLUSION: 2 questionable bone fragments adjacent to the talus and navicular bones could be tiny avulsion fractures. Philipp Fagan MD Objective Remarks RUE: +long arm splint. intact. NVI. sensation intact. swelling. Assessment & Plan Ortho Post Op Day #: 1 Problem List: Assessment and Plan 1) Right Distal Humerus Fx s/p ORIF - POD 1 -NWB -maintain splint at all times -Rx on chart -plan for DC home - hypotensive last night and received bolus. ortho stable. cleared for d/c when medically stable. -f/u with [facility] or [facility] in 2 weeks 2) Left Lateral Ankle Sprain -WBAT -no restrictions Hector Belcher Apr 30, 2017 08:27
[2017-04-30] MEDS ORDERED: CHOLECALCIFEROL (VIT D3) 1000 UNIT TAB PO SCH (09:00)
[2017-04-30] MEDS: CALCIUM/VITAMIN D 250 MG/125 U TAB PO SCH (09:09)
[2017-04-30] MEDS: SODIUM CHLORIDE 0.9% FLUSH 10 ML FLUSH IV FLUSH SCH (09:09)
[2017-04-30] MEDS: DOCUSATE SODIUM 50 MG/SENNA 8.6 MG TAB PO SCH (09:09)
[2017-04-30] MEDS: DILTIAZEM-CD 180 MG CAP ER PO SCH (09:09)
[2017-04-30] MEDS: PANTOPRAZOLE SOD 40 MG DELAYED RELEASE TAB PO SCH (09:10)
[2017-04-30] MEDS ORDERED: SODIUM CHLOR 0.9% 1000 ML INJ 1,000 ML IV ONE (10:00)
--- NOTE | 2017-04-30 10:50 | HHI.PR ---
Subjective Remarks tolerated operation well, POD #1. Afebrile overnight, patient is asking for chest x-ray. PT is ambulating with her and patient is obviously unsteady on her feet even with a walker on one side, PT says she is not stable for home health nor discharge from straight. Patient herself responds and says I will be fine, I just "don't medically feel well." She claims that she told the nursing staff before her surgery that she actually did have a fever of 101 or higher and told him to not charted so that she can get her surgery done, but the nursing staff denies this. Patient claims her systolic blood pressures in the 70s overnight, but case was discussed nursing, low blood pressure charted in 80s of 50s, came up to 100 systolic, patient has been afebrile last night Objective Vital Signs Date Time Temp Pulse Resp B/P (MAP) Pulse Ox O2 Delivery O2 Flow Rate FiO2 04/30/17 08:00 95.6 66 19 98/54 (69) 94 04/30/17 03:20 97.1 78 18 92/60 (71) 93 04/30/17 02:40 81/45 (57) 04/30/17 01:35 96.8 64 18 83/51 (62) 92 04/29/17 20:00 97.0 84 16 99/53 (68) 92 04/29/17 16:30 98.6 83 18 98/65 (76) 95 04/29/17 16:00 99.3 84 20 96/52 (67) 96 Nasal Cannula 2 04/29/17 15:45 81 12 101/55 (70) 95 04/29/17 15:30 89 12 100/49 (66) 97 04/29/17 15:15 87 17 114/58 (76) 95 04/29/17 15:00 100 20 119/62 (81) 97 Nasal Cannula 2 04/29/17 14:51 100.8 100 16 115/66 (82) 95 Nasal Cannula 2 I/O 04/29/17 04/29/17 04/29/17 04/30/17 04/30/17 04/30/17 07:00 15:00 23:00 07:00 15:00 23:00 Intake Total 992 ml 1300 ml 1511 ml 1638 ml Output Total 400 ml 1800 ml 300 ml 600 ml Balance 592 ml -500 ml 1211 ml 1038 ml Intake Oral 0 ml 960 ml 720 ml IV Total 992 ml 551 ml 918 ml Other 1300 ml Output Urine Total 400 ml 1600 ml 300 ml 600 ml Estimated Blood Loss 200 ml # Bowel Movements 2 0 Result Diagram: 04/28/17 0710 04/28/17 0710 Objective Remarks No acute distress Right arm in sling and postop dressing, able to wiggle her fingers on the right hand Unsteady gait while ambulating with therapist and with walker on one side, has diffuse mild tenderness to palpation over left ankle with meals aspect bruising Breath sounds are clear bilaterally and are adequate Heart rate is regular rate and rhythm, no murmurs A/P Assessment and Plan 62-year-old female with a past medical history of HTN, CAD, COPD, GERD, anxiety , chronic back pain, A. fib who presented after a fall severely comminuted fracture of the right humerus 2/2 mechanical fall and questionable tiny avulsion fractures in the left ankle - postop day 1 Nausea: Improved, continued to antiemetics as needed reports chronic allergies - Benadryl prn itching per pt's request pain - toradol prn, BP normalized. Other chronic medical conditions include A. fib, anxiety, HLD, HTN, CAD, GERD: Stable at this time and will continue home medications as indicated. I independently reviewed EKG, sinus rhythm today. will hold off on anticoagulation. Patient wanting to be discharged despite physical therapy's recommendation for inpatient rehabilitation. It was explained to the patient the risks and benefits of going home without further rehabilitation and she has verbalized understanding that the medical staff will not be liable for her should she injure herself at home due to weakness related to this hospitalization. Mitchel He MD Apr 30, 2017 10:50
[2017-04-30] MEDS: ALPRAZolam 1 MG TAB PO PRN (10:55)
[2017-04-30] MEDS: ACETAMINOPHEN/HYDROcodone 325 MG/10 MG TAB PO PRN (11:00)
[2017-04-30 12:00] VITALS: BP 117/69; PULSE 71; RESP 18; TEMP 98.1; O2SAT 98
[2017-04-30] MEDS ORDERED: fentaNYL 25 MCG/HR PATCH T-DERMAL SCH (14:00)
--- NOTE | 2017-04-30 14:53 | OTSOAPIP ---
TIME SESSION COMPLETED: 1450 RECEIVED OCCUPATIONAL THERAPY ORDERS. ATTEMPTED TO SEE PATIENT FOR EVALUATION, HOWEVER UPON ARRIVAL PATIENT REPORTS SHE IS BEING DISCHARGED AND POLITELY DECLINES EVALUATION. PATIENT REPORTS SHE LIVES WITH HER DAUGHTER WHO IS PRESENT AT BEDSIDE AND THEY BOTH VERBALIZE THEY WILL BE OK WITH COMPLETING ADLS WITHIN PRECAUTIONS OF RIGHT UPPER EXTREMITY. DAUGHTER REPORTS SHE WILL ASSIST PATIENT NEEDED. SPOKE WITH RN WHO VERIFIES PATIENT IS BEING DISCHARGED. OT WILL SIGN OFF. INTERDISCIPLINARY COMMUNICATION: REVIEWED ELECTRONIC MEDICAL RECORD, SPOKE WITH RN Therapist: Kristan Bojorquez OTR/L Signature on file
[2017-04-30] MEDS ORDERED: VITA1000 PO (15:40)
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
--- NOTE | 2017-04-30 15:41 | HHI.DS ---
Discharge Summary Admission Date Apr 27, 2017 at 17:10 Discharge Date: Apr 30, 2017 Admitting Diagnosis supracondylar fracture (1) Comminuted right humeral fracture ICD Code: S42.351A - Displaced comminuted fracture of shaft of humerus, right arm, initial encounter for closed fracture Procedures Operative repair of right humeral fracture Brief History - From Admission 62-year-old female with a past medical history of HTN, CAD, COPD, GERD, anxiety , chronic back pain, A. fib who presented after a fall. The patient states that today she was outside of a restaurant, and slipped on some wet leaves/ debris. She states that she twisted on her left ankle and landed on her right arm to avoid hitting her head. She had immediate pain in her right elbow and left ankle. She did not hit her head. She denies any other injury. She has been having some nausea since arriving in the ED, no vomiting. Pain is better controlled after IV Dilaudid. She was found to have a severely comminuted fracture of the right humerus and possible small avulsion fractures in her left ankle. Orthopedics was contacted from the ED and is planning on operative intervention tomorrow morning. CBC/BMP: 04/28/17 0710 04/28/17 0710 Significant Findings Laboratory Tests Test 04/27/17 18:00 04/28/17 07:10 White Blood Count 12.2 TH/MM3 (4.0-11.0) Red Blood Count 3.84 MIL/MM3 (4.00-5.30) 3.63 MIL/MM3 (4.00-5.30) Mean Platelet Volume 6.6 FL (7.0-11.0) 6.5 FL (7.0-11.0) Neutrophils (%) (Auto) 74.7 % (16.0-70.0) Neutrophils # (Auto) 9.1 TH/MM3 (1.8-7.7) Hemoglobin 11.4 GM/DL (11.6-15.3) Hematocrit 33.5 % (35.0-46.0) Imaging Last Impressions Humerus X-Ray 04/29/17 0000 Signed Impressions: Service Date/Time: Saturday, April 29, 2017 14:07 - CONCLUSION: Anatomic alignment. Aditya Briggs MD FACR Upper Extremity CT 04/27/17 0000 Signed Impressions: Service Date/Time: Thursday, April 27, 2017 14:43 - CONCLUSION: Severely comminuted fracture of the distal humerus. Aditya Briggs MD FACR Radius/Ulna X-Ray 04/27/17 0000 Signed Impressions: Service Date/Time: Thursday, April 27, 2017 12:29 - CONCLUSION: Comminuted supracondylar fracture elbow involves the lateral articular surface. CT with 3-D recon maybe helpful especially to exclude intra-articular fragments. Aditya Briggs MD FACR Foot X-Ray 04/27/17 0000 Signed Impressions: Service Date/Time: Thursday, April 27, 2017 13:47 - CONCLUSION: Mild degenerative changes, no fracture.. Aditya Briggs MD FACR Chest X-Ray 04/27/17 0000 Signed Impressions: Service Date/Time: Thursday, April 27, 2017 13:55 - CONCLUSION: Left basilar streakiness consistent with chronic atelectasis and/or fibrotic scarring. Peng Finch MD Cervical Spine CT 04/27/17 0000 Signed Impressions: Service Date/Time: Thursday, April 27, 2017 14:34 - CONCLUSION: There is no fracture. Radiographically significant spinal stenosis at C5-C6 with right neural foraminal encroachment Moderate spinal stenosis at C6-C7 With right neural foraminal encroachment Aditya Briggs MD FACR Ankle X-Ray 04/27/17 0000 Signed Impressions: Service Date/Time: Thursday, April 27, 2017 12:36 - CONCLUSION: 2 questionable bone fragments adjacent to the talus and navicular bones could be tiny avulsion fractures. Philipp Fagan MD PE at Discharge No acute distress Unlabored breathing Right arm in splint Ambulating slowly, mild bruising noted on the medial aspect of left foot Hospital Course Patient was admitted, underwent operative repair of right comminuted humerus fracture, was placed in splint postop. Was concluded to also have a left lateral ankle sprain. Patient was tolerating by mouth intake well, clinically she was recovering well, remained afebrile throughout her hospitalization with no evidence of true infection. She did have some transient hypotension that resolved with IV fluids. 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 It was clearly conveyed to the patient that she would put herself at risk if she did such a thing and that the medical staff would not be liable for, patient verbalized understanding and chooses to go home. Patient has met maximum benefit from hospitalization and is clinically stable for discharge. Pt Condition on Discharge: Stable Discharge Disposition: Discharge Home Discharge Time: > 30 minutes Discharge Instructions DIET: Follow Instructions for: As Tolerated, No Restrictions Other Activity Instructions: Nonweightbearing on right upper shoulder, weightbearing as tolerated on left lower shopping, maintain splint on right upper extremity at all times until seen by orthopedics at follow-up Follow up Referrals: Orthopedics - 2 Weeks @ [facility] with Morgan Soria MD New Medications: Hydrocodone-Acetaminophen (Hydrocodone-Acetaminophen) 10-325 mg Tab 1 TAB PO Q3HR PRN for PAIN, #60 TAB 0 Refills Cholecalciferol (D 1000) 1,000 Unit Tab 1000 UNITS PO DAILY for fracture, #30 TAB Continued Medications: Alprazolam (Xanax) 1 Mg Tab 1 MG PO BID PRN for ANXIETY, #20 TAB 0 Refills Aspirin (Aspirin) 81 Mg Chew 81 MG CHEW DAILY, TAB 0 Refills Atorvastatin (Lipitor) 10 Mg Tab 10 MG PO HS for Cholesterol Management, #30 TAB Diltiazem CD 24 HR (Cardizem CD 24 HR) 180 Mg Caper 180 MG PO DAILY for Heart, #30 CAP Naproxen Sodium (Naproxen Sodium) 220 Mg Tab 220 MG PO DAILY PRN for Pain Management, TAB 0 Refills Omeprazole (Omeprazole) 40 Mg Cap 40 MG PO DAILY for Reflux, #30 CAP 0 Refills Mitchel He MD Apr 30, 2017 15:41
[2017-04-30 16:00] VITALS: BP 117/61; PULSE 72; RESP 18; TEMP 98.5; O2SAT 98
[2017-05-03] MEDS ORDERED: REMOVE OLD DURAGESIC (FENTANYL) PATCH T-DERMAL SCH (14:00)
== END 2017-04-30 17:37 | disposition home or self-care (01) | DRG 493 ==
LOC: NEPD 11:12 → NEDA 17:10 → N06B 18:53
PROVIDERS: ADMIT Hospitalist; ATTEND Hospitalist
PROC: 0PSF04Z Reposition Right Humeral Shaft with Internal Fixation Device, Open Approach (ICD-10-PCS; principal; 2017-04-29 12:01)
DX: S42.421A Displaced comminuted supracondylar fracture without intercondylar fracture of right humerus, initial encounter for closed fracture (principal); F11.20 Opioid dependence, uncomplicated; I10 Essential (primary) hypertension; I48.91 Unspecified atrial fibrillation; F32.9 Major depressive disorder, single episode, unspecified; F41.9 Anxiety disorder, unspecified; E78.5 Hyperlipidemia, unspecified; K21.9 Gastro-esophageal reflux disease without esophagitis; W01.0XXA Fall on same level from slipping, tripping and stumbling without subsequent striking against object, initial encounter; Y92.481 Parking lot as the place of occurrence of the external cause; J44.9 Chronic obstructive pulmonary disease, unspecified; I25.10 Atherosclerotic heart disease of native coronary artery without angina pectoris; G89.29 Other chronic pain; M54.9 Dorsalgia, unspecified; Z79.82 Long term (current) use of aspirin; Z87.891 Personal history of nicotine dependence
CPT/HCPCS: 29105; 71010; 72125; 73060; 73090; 73200; 73610; 73630; 76000; 80048; 85025; 85610; 85730; 86850; 86900; 86901; 93005; 94150; 96374; 96375; 96376; J1170; C1713; J0690; J1580; J1885; J2250; J2405; J2710; J3010; J3370; J7030; J7040; J7120; J8501